=== PATIENT | female | born 1965 | race Caucasian/White ===

== ENCOUNTER 2017-08-03 08:10 | Emergency (ER) | payer OTHER, SELFPAY ==
[2017-08-03 08:29] VITALS: BP 127/65; PULSE 85; RESP 16; TEMP 36.9; O2SAT 97; BMI 28.2
--- NOTE | 2017-08-03 08:30 | ED.URI ---
HPI - URI/Sore Throat General Chief Complaint: Upper Respiratory Symptoms Stated Complaint: cough, fever Time Seen by Provider: 08/03/17 08:37 Source: patient and family Mode of arrival: ambulatory Limitations: no limitations History of Present Illness HPI Narrative: 51F no significant pmhx has cough, fever 3 days. Cough dry, fever controlled with tylenol. Subjective dyspnea associated. No chest pain, nausea or vomiting. PCP Dr. Umaña. Related Data Previous Rx's Medication Instructions Recorded azithromycin See Label Instructions .ROUTE 08/03/17 .COMPLEX #6 tab codeine-guaifenesin 7.5 ml PO Q4-6H PRN #473 ml 08/03/17 Allergies Allergy/AdvReac Type Severity Reaction Status Date / Time No Known Drug Allergies Allergy Verified 08/03/17 08:29 Review of Systems Review of Systems ROS: Constitutional - No fever, chills Eyes - No visual changes ENT - No hearing loss Cardiovascular - No chest pain, No edema, no palpitations Respiratory - dry cough, mild shortness of breath GI - No abdominal pain, No nausea, No vomiting - No dysuria, no hematuria MSK- No back pain Skin - No rash Neuro - No weakness, no change in level of consciousness Endocrine - No polyuria Hematologic/lymphatic - No easy bruising, no petechiae PFSH Social History Smoking Status: Never smoker Exam Narrative Exam Narrative: Exam: Constitutional - mildy ill appearing, well nourished, NAD EYES - PERRL, EOMI ENT - Moist oral mucosa, Bilateral normal TMs Cardiovasuclar - Normal rate, rhythm, no murmurs, gallops, rubs Respiratory - Lungs CTA bilaterally, no increased respiratory effort, no accessory muscle use, dry cough GI - Soft, non tender, non distended, no rebound MSK - No deformity, No CVA tenderness, No peripheral edema Skin - No rash, no petechiae Neuro - A&Ox3, moves all extremities. No focal deficits Initial Vital Signs Initial Vital Signs: Vital Signs Temperature 98.5 F 08/03/17 08:29 Pulse Rate 85 08/03/17 08:29 Respiratory Rate 16 08/03/17 08:29 Blood Pressure 127/65 H 08/03/17 08:29 Pulse Oximetry 97 08/03/17 08:29 Course Orders Ordered: ED Orders 08/03/17 08:31 XR chest 2V Stat 08/03/17 09:22 Complete Blood Count AUTO DIFF Stat Comprehensive Metabolic Panel Stat Discontinued Medications Guaifenesin/Codeine Phosphate (Guaifenesin/Codeine Liquid) 10 ml PO NOW ONE Stop: 08/03/17 09:53 Last Admin: 08/03/17 10:04 Dose: 10 ml Azithromycin 500 mg/ Dextrose 250 mls @ 250 mls/hr IV NOW ONE Stop: 08/03/17 09:33 Last Admin: 08/03/17 09:47 Dose: 250 mls/hr Vital Signs - 8 hr 08/03/17 08:29 Temperature 98.5 F Pulse Rate 85 Respiratory Rate 16 Blood Pressure 127/65 H Pulse Oximetry 97 MDM - URI/Sore Throat Lab Data Result diagrams: 08/03/17 09:22 08/03/17 09:22 Lab Results 08/03/17 08/03/17 Range/Units 09:22 09:22 WBC 8.1 (4.5-11.0) X10^3/uL RBC 3.66 L (4.0-5.2) X10^6/uL Hgb 11.4 L (12.0-16.0) g/dL Hct 33.0 L (36-46) % MCV 90.0 (80-100) fL MCH 31.2 (26-34) PG MCHC 34.7 (30-36) % RDW 12.9 (11.6-14.8) % Plt Count 266 (150-400) X10^3/uL Neut % (Auto) 73.6 (50-75) % Lymph % (Auto) 13.1 L (25-40) % [place] % (Auto) 11.1 (3-14) % Eos % (Auto) 1.7 L (2-4) % Baso % (Auto) 0.5 (0-2) % Neut # (Auto) 6000 H (1604-4889) /uL Sodium 139 (137-145) mmol/L Potassium 3.7 (3.4-5.1) mmol/L Chloride 101.0 (98-107) mmol/L Carbon Dioxide 25.0 (22-32) mmol/L BUN 5.0 L (7-17) mg/dL Creatinine 0.60 (0.52-1.04) mg/dL Estimated GFR > 60.0 (>60) mL/min BUN/Creatinine Ratio 8.3 (6-22) Glucose 105 H (70-100) mg/dL Calcium 8.7 (8.4-10.2) mg/dL Total Bilirubin 0.5 (0.2-1.3) mg/dL AST 60 H (14-36) IU/L ALT 74 H (9-52) IU/L Alkaline Phosphatase 137 H (38-126) U/L Total Protein 7.4 (6.3-8.2) g/dL Albumin 4.0 (3.5-5.0) g/dL Globulin 3.4 (1.7-4.1) g/dL Albumin/Globulin Ratio 1.2 (1.0-2.8) Imaging Data Chest x-ray: Radiologist's impression: Patient: Mackenzie Gr [facility]#: [id number] : 1965Acct:[id number] Age/Sex: 51 / FDate of Service: 08/03/17 Loc: ED Accession Number: [id number] Procedure: XR chest 2V Ordering Provider: Beatrice Mitchell M.D. PROCEDURE: XR CHEST 2V INDICATIONS: cough TECHNIQUE: 2 views of the chest were acquired. COMPARISON: Outside Facility, RG, XR CXR 1V, 09/14/2015, 15:45. FINDINGS: Surgical changes and devices: None. Lungs and pleura: No pleural effusions or pneumothorax. There are increased patchy left perihilar opacities. Mediastinum: Mediastinal contours are normal. Heart size is normal. Bones and chest wall: No suspicious bony abnormalities. Soft tissues appear unremarkable. IMPRESSION: 1. Patchy left perihilar opacities suggestive of pneumonia given clinical history. Dictated by: Ab Up M.D. on 08/03/2017 at 9:09 Approved by: Ab Up M.D. on 08/03/2017 at 9:09 [facility] Narrative Medical decision making narrative: Otherwise healthy female with perihilar pneumonia. Spo2 WNL on room air, no respiratory distress. Treat with azithromycin as outpatient. Discharge Plan Departure Patient Disposition: Home, Self-Care Clinical Impression: Pneumonia, Bronchitis Instructions: Pneumonia-Adult Activity Restrictions/Additional Instructions: Maintain adequate hydration. Please follow up with your primary care provider. Take antibiotics as prescribed. Prescriptions: New azithromycin 250 mg tablet See Label Instructions .ROUTE .COMPLEX Qty: 6 RF: 0 codeine-guaifenesin 7.5-225 mg/5 mL liquid 7.5 ml PO Q4-6H PRN (Reason: cough) Qty: 473 RF: 0
[2017-08-03 09:30] LABS: Add Manual Diff / Slide Review NO; Basophils Percent Auto 0.5 % (0-2); Eosinophils Percent Auto 1.7 % (2-4); Hemoglobin 11.4 g/dL (12.0-16.0); Lymphocytes Percent Auto 13.1 % (25-40); Mean Corpuscular HGB Conc 34.7 % (30-36); Mean Corpuscular Hemoglobin 31.2 PG (26-34); Monocytes Percent Auto 11.1 % (3-14); Neutrophils Absolute Auto 6000 /uL (3000-5900); Neutrophils Percent Auto 73.6 % (50-75); Platelet Count 266 X10^3/uL (150-400); Red Blood Cell Count 3.66 X10^6/uL (4.0-5.2); Red Cell Distribution Width 12.9 % (11.6-14.8); White Blood Cell Count 8.1 X10^3/uL (4.5-11.0)
--- NOTE | 2017-08-03 09:32 | ED_ITS ---
HPI - URI/Sore Throat General Chief Complaint: Upper Respiratory Symptoms Stated Complaint: cough, fever Time Seen by Provider: 08/03/17 08:37 Source: patient and family Mode of arrival: ambulatory Limitations: no limitations History of Present Illness HPI Narrative: 51F no significant pmhx has cough, fever 3 days. Cough dry, fever controlled with tylenol. Subjective dyspnea associated. No chest pain, nausea or vomiting. PCP Dr. Umaña. Related Data Previous Rx's Medication Instructions Recorded azithromycin See Label Instructions .ROUTE 08/03/17 .COMPLEX #6 tab codeine-guaifenesin 7.5 ml PO Q4-6H PRN #473 ml 08/03/17 Allergies Allergy/AdvReac Type Severity Reaction Status Date / Time No Known Drug Allergies Allergy Verified 08/03/17 08:29 Review of Systems Review of Systems ROS: Constitutional - No fever, chills Eyes - No visual changes ENT - No hearing loss Cardiovascular - No chest pain, No edema, no palpitations Respiratory - dry cough, mild shortness of breath GI - No abdominal pain, No nausea, No vomiting - No dysuria, no hematuria MSK- No back pain Skin - No rash Neuro - No weakness, no change in level of consciousness Endocrine - No polyuria Hematologic/lymphatic - No easy bruising, no petechiae PFSH Social History Smoking Status: Never smoker Exam Narrative Exam Narrative: Exam: Constitutional - mildy ill appearing, well nourished, NAD EYES - PERRL, EOMI ENT - Moist oral mucosa, Bilateral normal TMs Cardiovasuclar - Normal rate, rhythm, no murmurs, gallops, rubs Respiratory - Lungs CTA bilaterally, no increased respiratory effort, no accessory muscle use, dry cough GI - Soft, non tender, non distended, no rebound MSK - No deformity, No CVA tenderness, No peripheral edema Skin - No rash, no petechiae Neuro - A&Ox3, moves all extremities. No focal deficits Initial Vital Signs Initial Vital Signs: Vital Signs Temperature 98.5 F 08/03/17 08:29 Pulse Rate 85 08/03/17 08:29 Respiratory Rate 16 08/03/17 08:29 Blood Pressure 127/65 H 08/03/17 08:29 Pulse Oximetry 97 08/03/17 08:29 Course Orders Ordered: ED Orders 08/03/17 08:31 XR chest 2V Stat 08/03/17 09:22 Complete Blood Count AUTO DIFF Stat Comprehensive Metabolic Panel Stat Discontinued Medications Guaifenesin/Codeine Phosphate (Guaifenesin/Codeine Liquid) 10 ml PO NOW ONE Stop: 08/03/17 09:53 Last Admin: 08/03/17 10:04 Dose: 10 ml Azithromycin 500 mg/ Dextrose 250 mls @ 250 mls/hr IV NOW ONE Stop: 08/03/17 09:33 Last Admin: 08/03/17 09:47 Dose: 250 mls/hr Vital Signs - 8 hr 08/03/17 08:29 Temperature 98.5 F Pulse Rate 85 Respiratory Rate 16 Blood Pressure 127/65 H Pulse Oximetry 97 MDM - URI/Sore Throat Lab Data Result diagrams: 08/03/17 09:22 08/03/17 09:22 Lab Results 08/03/17 08/03/17 Range/Units 09:22 09:22 WBC 8.1 (4.5-11.0) X10^3/uL RBC 3.66 L (4.0-5.2) X10^6/uL Hgb 11.4 L (12.0-16.0) g/dL Hct 33.0 L (36-46) % MCV 90.0 (80-100) fL MCH 31.2 (26-34) PG MCHC 34.7 (30-36) % RDW 12.9 (11.6-14.8) % Plt Count 266 (150-400) X10^3/uL Neut % (Auto) 73.6 (50-75) % Lymph % (Auto) 13.1 L (25-40) % [place] % (Auto) 11.1 (3-14) % Eos % (Auto) 1.7 L (2-4) % Baso % (Auto) 0.5 (0-2) % Neut # (Auto) 6000 H (3948-7486) /uL Sodium 139 (137-145) mmol/L Potassium 3.7 (3.4-5.1) mmol/L Chloride 101.0 (98-107) mmol/L Carbon Dioxide 25.0 (22-32) mmol/L BUN 5.0 L (7-17) mg/dL Creatinine 0.60 (0.52-1.04) mg/dL Estimated GFR > 60.0 (>60) mL/min BUN/Creatinine Ratio 8.3 (6-22) Glucose 105 H (70-100) mg/dL Calcium 8.7 (8.4-10.2) mg/dL Total Bilirubin 0.5 (0.2-1.3) mg/dL AST 60 H (14-36) IU/L ALT 74 H (9-52) IU/L Alkaline Phosphatase 137 H (38-126) U/L Total Protein 7.4 (6.3-8.2) g/dL Albumin 4.0 (3.5-5.0) g/dL Globulin 3.4 (1.7-4.1) g/dL Albumin/Globulin Ratio 1.2 (1.0-2.8) Imaging Data Chest x-ray: Radiologist's impression: Patient: Mackenzie Gr [facility]#: [id number] : 1965Acct:[id number] Age/Sex: 51 / FDate of Service: 08/03/17 Loc: ED Accession Number: [id number] Procedure: XR chest 2V Ordering Provider: Beatrice Mitchell M.D. PROCEDURE: XR CHEST 2V INDICATIONS: cough TECHNIQUE: 2 views of the chest were acquired. COMPARISON: Outside Facility, RG, XR CXR 1V, 09/14/2015, 15:45. FINDINGS: Surgical changes and devices: None. Lungs and pleura: No pleural effusions or pneumothorax. There are increased patchy left perihilar opacities. Mediastinum: Mediastinal contours are normal. Heart size is normal. Bones and chest wall: No suspicious bony abnormalities. Soft tissues appear unremarkable. IMPRESSION: 1. Patchy left perihilar opacities suggestive of pneumonia given clinical history. Dictated by: Ab Up M.D. on 08/03/2017 at 9:09 Approved by: Ab Up M.D. on 08/03/2017 at 9:09 [facility] Narrative Medical decision making narrative: Otherwise healthy female with perihilar pneumonia. Spo2 WNL on room air, no respiratory distress. Treat with azithromycin as outpatient. Discharge Plan Departure Patient Disposition: Home, Self-Care Clinical Impression: Pneumonia, Bronchitis Instructions: Pneumonia-Adult Activity Restrictions/Additional Instructions: Maintain adequate hydration. Please follow up with your primary care provider. Take antibiotics as prescribed. Prescriptions: New azithromycin 250 mg tablet See Label Instructions .ROUTE .COMPLEX Qty: 6 RF: 0 codeine-guaifenesin 7.5-225 mg/5 mL liquid 7.5 ml PO Q4-6H PRN (Reason: cough) Qty: 473 RF: 0
[2017-08-03 09:42] LABS: Alanine Aminotransferase 74 IU/L (9-52); Albumin Globulin Ratio 1.2 (1.0-2.8); Alkaline Phosphatase 137 U/L (38-126); Aspartate Aminotransferase 60 IU/L (14-36); BUN Creatinine Ratio 8.3 (6-22); Bilirubin Total 0.5 mg/dL (0.2-1.3); Calcium 8.7 mg/dL (8.4-10.2); Estimated Glomerular Filt Rate > 60.0 mL/min (>60); Globulin 3.4 g/dL (1.7-4.1); Glucose 105 mg/dL (70-100); HEMOLYSIS < 15 (0-50); Potassium 3.7 mmol/L (3.4-5.1); Sodium 139 mmol/L (137-145); Total Protein 7.4 g/dL (6.3-8.2)
[2017-08-03] MEDS: AZITHROMYCIN 500 MG in DEXTROSE 5% IN WATER 250 ML IV (09:47)
[2017-08-03] MEDS: CODEINE/GUAIFENESIN LIQUID 10 ML PO (10:04)
[2017-08-03 10:20] VITALS: BP 112/65; PULSE 90; RESP 12; O2SAT 97
[2017-08-03 10:55] VITALS: BP 103/67; PULSE 79; RESP 12; O2SAT 96
== END 2017-08-03 10:59 | disposition home or self-care (01) ==
PROVIDERS: Emergency Provider Student in an Organized Health Care Education/Training Program; Family Provider Family Medicine; PCP Family Medicine
DX: J18.9 Pneumonia, unspecified organism (principal); J40 Bronchitis, not specified as acute or chronic
CPT/HCPCS: 36415; 71046; 80053; 85025; 99283; 99284

== ENCOUNTER → 2017-11-12 09:39 | Outpatient (CLI) | payer OTHER, SELFPAY ==
--- NOTE | 2017-11-12 | DI.MG.S_ITS ---
BILATERAL DIGITAL SCREENING MAMMOGRAM 3D/2D WITH CAD: 11/12/2017 CLINICAL: Routine screening. Family history of breast cancer. Comparison is made to exams dated: 11/08/2016 mammogram - [facility], 09/14/2015 mammogram, and 09/04/2013 mammogram - [facility]. There are scattered fibroglandular elements in both breasts. Current study was also evaluated with a Computer Aided Detection (CAD) system. No significant masses, calcifications, or other findings are seen in either breast. There has been no significant interval change. IMPRESSION: NEGATIVE There is no mammographic evidence of malignancy. A 1 year screening mammogram is recommended. This exam was interpreted at Station ID: [id number]. NOTE: For mammograms, a report in lay terms will be sent to the patient. Approximately 15% of breast malignancies will not be visualized mammographically. In the management of a palpable breast mass, a negative mammogram must not discourage biopsy of a clinically suspicious lesion. Electronically Signed By: Falguni ellis/hilda:11/12/2017 11:09:29 copy to: Neha Fernandez copy to: Kristin Grier M.D., [employer], ph: [phone], fax: [phone] letter sent: Normal Exam ACR BI-RADS Category 1: Negative [id number]
== END ==
PROVIDERS: PCP Family Medicine; Visit Provider Nurse Practitioner Family
DX: Z12.31 Encounter for screening mammogram for malignant neoplasm of breast (principal); Z80.3 Family history of malignant neoplasm of breast
CPT/HCPCS: 77063; 77067

== ENCOUNTER → 2017-12-03 14:33 | Outpatient (CLI) | payer OTHER, SELFPAY | DX: Z23 Encounter for immunization (principal) | CPT/HCPCS: 90471; 90686 ==

== ENCOUNTER → 2018-01-22 10:45 | Outpatient (CLI) | payer OTHER, SELFPAY ==
[2018-01-22 13:59] LABS: Thyroid Stimulating Hormone 3.51 uIU/mL (0.47-4.68)
[2018-01-22 16:22] LABS: Cholesterol 198 mg/dL (140-199); Glucose 81 mg/dL (70-100); HDL Cholesterol 57 mg/dL (40-60); LDL Cholesterol Calculated 122 mg/dL (<100); Triglycerides 96 mg/dL (35-150)
== END ==
PROVIDERS: PCP Family Medicine; Visit Provider Family Medicine
DX: Z13.1 Encounter for screening for diabetes mellitus (principal); Z13.220 Encounter for screening for lipoid disorders; E03.9 Hypothyroidism, unspecified
CPT/HCPCS: 36415; 80061; 82947; 84443

== ENCOUNTER 2018-03-05 19:09 | Emergency (ER) | payer OTHER, SELFPAY ==
[2018-03-05 19:35] VITALS: BP 146/79; PULSE 68; PULSE 72; RESP 16; RESP 20; TEMP 36.2; O2SAT 98; BMI 25.4
--- NOTE | 2018-03-05 19:57 | DI.CT.S_ITS ---
PROCEDURE: CT ABDOMEN PELVIS W CON INDICATIONS: abdomen pain TECHNIQUE: After the administration of intravenous contrast, 5 mm thick sections acquired from the diaphragm to the symphysis. 5 mm coronal and sagittal reformats were acquired. For radiation dose reduction, the following was used: automated exposure control, adjustment of mA and/or kV according to patient size. COMPARISON: [employer] [facility], US, US PELVIC COMPLETE, 10/04/2017, 17:05. FINDINGS: Image quality: Excellent. ABDOMEN: Lung bases: Lung bases are clear. Heart size is normal. Solid organs: Liver is mildly enlarged with steatosis. Gallbladder is unremarkable. Biliary system is non dilated. Pancreas enhances normally. Spleen is normal in size and enhancement. No adrenal nodules. Kidneys demonstrate normal size and enhancement, without hydronephrosis. Peritoneum and bowel: Mild scattered appearance of fluid filled small bowel loops. No free fluid or air. Mild scattered diverticula are noted without inflammatory change. Moderate stool is present. Appendix is unremarkable. Nodes and vessels: No retroperitoneal or mesenteric adenopathy by size criteria. Aorta and inferior vena cava are normal in size. Miscellaneous: No ventral hernias. PELVIS: Genitourinary: Bladder wall thickness is normal. Miscellaneous: No inguinal hernias or adenopathy. Bones: No suspicious bony lesions. No vertebral body compression fractures. IMPRESSION: 1. Prominent colonic stool consistent with constipation. 2. Mild appearance of scattered fluid filled small bowel loops, overall non-specific. This could be related to ileus, enteritis or less likely developing partial small bowel obstruction. Dictated by: Raquel Jacob M.D. on 03/05/2018 at 20:47 Approved by: Raquel Jacob M.D. on 03/05/2018 at 20:51
[2018-03-05 20:45] LABS: Add Manual Diff / Slide Review NO; Basophils Percent Auto 0.8 % (0-2); Eosinophils Percent Auto 1.8 % (2-4); Hematocrit 39.3 % (36-46); Hemoglobin 13.6 g/dL (12.0-16.0); Lymphocytes Percent Auto 33.8 % (25-40); Mean Corpuscular HGB Conc 34.5 % (30-36); Mean Corpuscular Hemoglobin 31.4 PG (26-34); Mean Corpuscular Volume 90.9 fL (80-100); Monocytes Percent Auto 7.5 % (3-14); Neutrophils Absolute Auto 3900 /uL (1500-7000); Neutrophils Percent Auto 56.1 % (50-75); Platelet Count 344 X10^3/uL (150-400); Red Blood Cell Count 4.32 X10^6/uL (4.0-5.2); Red Cell Distribution Width 13.7 % (11.6-14.8)
[2018-03-05 20:55] LABS: Alanine Aminotransferase 25 IU/L (9-52); Albumin 4.6 g/dL (3.5-5.0); Albumin Globulin Ratio 1.4 (1.0-2.8); Alkaline Phosphatase 79 U/L (38-126); Aspartate Aminotransferase 35 IU/L (14-36); BUN Creatinine Ratio 12.2 (6-22); Bilirubin Total 0.3 mg/dL (0.2-1.3); Blood Urea Nitrogen 11 mg/dL (7-17); Calcium 10.1 mg/dL (8.4-10.2); Carbon Dioxide 30 mmol/L (22-32); Chloride 104 mmol/L (98-107); Estimated Glomerular Filt Rate > 60.0 mL/min (>60); Globulin 3.4 g/dL (1.7-4.1); Glucose 109 mg/dL (70-100); HEMOLYSIS < 15 (0-50); Potassium 3.8 mmol/L (3.4-5.1); Sodium 146 mmol/L (137-145)
[2018-03-05 20:56] LABS: Lipase 155 U/L (23-300)
[2018-03-05 20:59] VITALS: BP 113/67; PULSE 56; RESP 16; O2SAT 98
[2018-03-05] MEDS: ONDANSETRON 4 MG/2 ML INJ IV (20:59)
[2018-03-05] MEDS: HYDROMORPHONE 1 MG INJ 0.5 MG IV (20:59)
[2018-03-05] MEDS: SODIUM CHLORIDE 0.9% 1,000 ML 1000 ML IV (20:59)
[2018-03-05] MEDS: PANTOPRAZOLE 40 MG VIAL IV (21:04)
--- NOTE | 2018-03-05 21:10 | ED_ITS ---
HPI - Abdominal Pain General Chief Complaint: Abdominal Pain Stated Complaint: CHEST PAIN AND BACK PAIN Time Seen by Provider: 03/05/18 19:40 Source: patient Mode of arrival: ambulatory Limitations: no limitations History of Present Illness HPI narrative: 52-year-old nonsmoker, otherwise healthy female presents with chief complaint of gradually worsening generalized abdominal, particularly in right upper and left upper abdomen with radiation to the back. She vomited once. She denies provocation or palliation of her symptoms nor any history of the same. She denies any significant alcohol history. She denies significant use of NSAIDs. She is routinely quite healthy and visibly concerned about this discomfort she is having. Related Data Home Medications Medication Instructions Recorded Confirmed thyroid 60 mg tablet mg PO tab 10/04/17 01/22/18 Previous Rx's Medication Instructions Recorded CMP Testosterone See Label Instructions .ROUTE 11/05/17 .COMPLEX #30 gram alprazolam 0.25 mg tablet 0.25 mg PO TID PRN #10 tab 01/22/18 thyroid (pork) 65 mg tablet 65 mg PO DAILY #90 tab 01/22/18 thyroid (pork) 60 mg tablet 60 mg PO DAILY #90 tab 01/24/18 metoclopramide HCl [Reglan] 10 mg PO Q6H PRN #14 tab 03/05/18 ondansetron 4 mg PO TID-QID PRN #10 tab 03/05/18 Allergies Allergy/AdvReac Type Severity Reaction Status Date / Time No Known Drug Allergies Allergy Verified 03/05/18 19:35 Review of Systems Review of Systems All systems reviewed & are unremarkable except as noted in HPI and below Constitutional Denies chills, Denies fever(s), Denies lethargy and Denies weakness Eyes Denies change in vision, Denies eye discharge, Denies irritation and Denies loss of vision ENT Ears, Nose, Mouth, and Throat: Denies change in voice, Denies neck pain and Denies sore throat Cardiovascular Denies chest pain, Denies irregular heart rhythm, Denies lightheadedness, Denies palpitations, Denies dyspnea, Denies dyspnea on exertion and Denies orthopnea Respiratory Denies cough, Denies dyspnea, Denies dyspnea on exertion and Denies wheezing Gastrointestinal Gastrointestinal: Reports abdominal pain, Denies change in bowel habits, Denies diarrhea, Reports nausea and Reports vomiting Genitourinary Denies hematuria, Denies flank pain, Denies urinary incontinence and Denies urinary urgency Musculoskeletal Denies neck pain Integumentary/Breasts Denies pruritus, Denies erythema, Denies rash and Denies wounds Neurologic Denies confusion, Denies loss of vision and Denies weakness Psychiatric Denies anxiety, Denies confusion, Denies depression, Denies homicidal ideation and Denies suicidal ideation Endocrine Denies palpitations Hematologic/Lymphatic Denies easy bruising Allergic/Immunologic Denies wheezing [facility] Medical History Family hx of colon cancer (Chronic) Hypothyroidism (Chronic ~1993) Painful menstrual periods (Chronic ~1979) Restless leg syndrome (Chronic ~1989) Shoulder pain (Chronic ~2017) Skin cancer (Chronic ~2001) Abnormal Pap smear of cervix (Resolved ~2003) Abnormal chest xray (Resolved ~2017) Chicken pox (Resolved ~1968) Surgical History Anesthesia (Resolved) Branchial cleft cyst (Resolved ~1975) History of section (Resolved ~2000) History of section (Resolved ~2001) Throat papilloma (Resolved ~2004) [place] teeth removed (Resolved ~1982) Family History Father Alcoholism Smoker Mother Hyperlipidemia Hypertension Sister Rectal cancer Grandfather Hyperlipidemia Hypertension Heart disease Grandmother Diabetes mellitus Hypertension Stroke Grandfather Hyperlipidemia Hypertension Grandmother Hypertension Diabetes mellitus Social History Smoking Status: Never smoker Exam Narrative Exam Narrative: GENERAL: This is a well-nourished, well-developed patient, in mild distress. Slightly anxious HEAD: Atraumatic. Normocephalic. No temporal or scalp tenderness. EYES: Pupils equal round and reactive. Extraocular motions intact. No scleral icterus. No injection or drainage. ENT: Nose without bleeding, purulent drainage or septal hematoma. Throat without erythema, tonsillar hypertrophy or exudate. Uvula midline. Airway patent. NECK: Trachea midline. No JVD or lymphadenopathy. Supple, nontender, no meningeal signs. CARDIOVASCULAR: Regular rate and rhythm without murmurs, gallops, or rubs. RESPIRATORY: Clear to auscultation. Breath sounds equal bilaterally. No wheezes , rales, or rhonchi. GASTROINTESTINAL: Abdomen soft, tender across the epigastrium, right upper quadrant worse than left upper quadrant, nondistended. No hepato-splenomegaly, or palpable masses. No guarding. EXTREMITIES: No clubbing, cyanosis, or edema. No joint tenderness, effusion, or edema noted. BACK: Nontender without deformity or crepitance. No flank tenderness. NEURO: AOx3. SKIN: No rash or erythema. Initial Vital Signs Initial Vital Signs: Vital Signs Temperature 97.1 F L 03/05/18 19:35 Pulse Rate 72 03/05/18 19:35 Respiratory Rate 20 03/05/18 19:35 Blood Pressure 146/79 H 03/05/18 19:35 Pulse Oximetry 98 03/05/18 19:35 Course Orders Ordered: ED Orders 03/05/18 19:57 CT abdomen pelvis w con Stat 03/05/18 20:30 Complete Blood Count AUTO DIFF Stat Comprehensive Metabolic Panel Stat Free T4 Free Thyroxine Stat Lipase Stat Thyroid Stimulating Hormone Stat Discontinued Medications Hydromorphone HCl (Dilaudid) 0.5 mg IV NOW ONE Stop: 03/05/18 20:41 Last Admin: 03/05/18 20:59 Dose: 0.5 mg Sodium Chloride (Normal Saline 0.9%) 1,000 mls @ 1,000 mls/hr IV BOLUS ONE Stop: 03/05/18 21:32 Last Admin: 03/05/18 20:59 Dose: 1,000 mls/hr Metoclopramide HCl (Reglan) 10 mg IV NOW ONE Stop: 03/05/18 21:40 Last Admin: 03/05/18 21:46 Dose: 10 mg Ondansetron HCl (Zofran) 4 mg IV NOW ONE Stop: 03/05/18 20:41 Last Admin: 03/05/18 20:59 Dose: 4 mg Ondansetron HCl (Zofran Odt Prepack) 1 bottle MISC SEEINSTR ONE Stop: 03/05/18 21:53 Pantoprazole Sodium (Protonix) 40 mg IV NOW ONE Stop: 03/05/18 20:34 Last Admin: 03/05/18 21:04 Dose: 40 mg Reevaluation(s) Reevaluation #1: Patient states that her left upper quadrant pain essentially went away after administration of 1st round of medications. She was seen and evaluated by General surgery very early on in the visit and request CT Consultations Consultation #1: Dr. Vital consulted early and again after CT. She recommends symptomatic treatment and DC but is happy to admit for symptom control if patient needs it. Vital Signs - 8 hr 03/05/18 20:59 03/05/18 22:35 Pulse Rate 56 L 70 Respiratory Rate 16 14 Blood Pressure 115/65 Blood Pressure [Left Arm] 113/67 Pulse Oximetry 98 100 MDM - Abdominal Pain Lab Data Result diagrams: 03/05/18 20:30 03/05/18 20:30 Lab Results 03/05/18 03/05/18 03/05/18 Range/Units 20:30 20:30 20:30 WBC 7.0 (4.5-11.0) X10^3/uL RBC 4.32 (4.0-5.2) X10^6/uL Hgb 13.6 (12.0-16.0) g/dL Hct 39.3 (36-46) % MCV 90.9 (80-100) fL MCH 31.4 (26-34) PG MCHC 34.5 (30-36) % RDW 13.7 (11.6-14.8) % Plt Count 344 (150-400) X10^3/uL Neut % (Auto) 56.1 (50-75) % Lymph % (Auto) 33.8 (25-40) % [place] % (Auto) 7.5 (3-14) % Eos % (Auto) 1.8 L (2-4) % Baso % (Auto) 0.8 (0-2) % Neut # (Auto) 3900 (8684-2585) /uL Sodium (137-145) mmol/L Potassium (3.4-5.1) mmol/L Chloride (98-107) mmol/L Carbon Dioxide (22-32) mmol/L BUN (7-17) mg/dL Creatinine (0.52-1.04) mg/dL Estimated GFR (>60) mL/min BUN/Creatinine Ratio (6-22) Glucose (70-100) mg/dL Calcium (8.4-10.2) mg/dL Total Bilirubin (0.2-1.3) mg/dL AST (14-36) IU/L ALT (9-52) IU/L Alkaline Phosphatase (38-126) U/L Total Protein (6.3-8.2) g/dL Albumin (3.5-5.0) g/dL Globulin (1.7-4.1) g/dL Albumin/Globulin Ratio (1.0-2.8) Lipase 155 (23-300) U/L TSH 6.53 H (0.47-4.68) uIU/mL Free T4 0.82 (0.78-2.19) ng/dL // Range/Units 20:30 WBC (4.5-11.0) X10^3/uL RBC (4.0-5.2) X10^6/uL Hgb (12.0-16.0) g/dL Hct (36-46) % MCV (80-100) fL MCH (26-34) PG MCHC (30-36) % RDW (11.6-14.8) % Plt Count (150-400) X10^3/uL Neut % (Auto) (50-75) % Lymph % (Auto) (25-40) % [place] % (Auto) (3-14) % Eos % (Auto) (2-4) % Baso % (Auto) (0-2) % Neut # (Auto) (7527-9860) /uL Sodium 146 H (137-145) mmol/L Potassium 3.8 (3.4-5.1) mmol/L Chloride 104 (98-107) mmol/L Carbon Dioxide 30 (22-32) mmol/L BUN 11 (7-17) mg/dL Creatinine 0.90 (0.52-1.04) mg/dL Estimated GFR > 60.0 (>60) mL/min BUN/Creatinine Ratio 12.2 (6-22) Glucose 109 H (70-100) mg/dL Calcium 10.1 (8.4-10.2) mg/dL Total Bilirubin 0.3 (0.2-1.3) mg/dL AST 35 (14-36) IU/L ALT 25 (9-52) IU/L Alkaline Phosphatase 79 (38-126) U/L Total Protein 8.0 (6.3-8.2) g/dL Albumin 4.6 (3.5-5.0) g/dL Globulin 3.4 (1.7-4.1) g/dL Albumin/Globulin Ratio 1.4 (1.0-2.8) Lipase (23-300) U/L TSH (0.47-4.68) uIU/mL Free T4 (0.78-2.19) ng/dL Discharge Plan Departure Patient Disposition: Home Clinical Impression: Abdominal pain, Vomiting Discharge Date/Time: 03/05/18 22:34 Interventions: ED Discharge Assessment Last Done: 03/05/18 22:35 Instructions: DI for Abdominal Pain-Adult Activity Restrictions/Additional Instructions: 1. Drink plenty of fluids with frequent small sips. 2. For the next 24 hours a clear liquid diet is advised. After that please employ a brat diet which would include bananas, rice, apples, toast. 3. Please take medications as directed. Prescriptions were sent to [facility] based on your listed preference 4. Please follow-up with your doctor in the next 1-2 days. Call the office for an appointment. 5. Please return to the emergency Department for any worsening or persistent symptoms, such as increasing pain or fever. Prescriptions: New ondansetron 4 mg tablet,disintegrating 4 mg PO TID-QID PRN (Reason: nausea and vomiting) Qty: 10 RF: 0 metoclopramide HCl [Reglan] 10 mg tablet 10 mg PO Q6H PRN (Reason: nausea and vomiting) Qty: 14 RF: 0 No Action CMP Testosterone See Label Instructions .ROUTE .COMPLEX Qty: 30 RF: 3 thyroid (pork) [Nature-Throid] 65 mg tablet 65 mg PO DAILY Qty: 90 RF: 3 thyroid (pork) [[place] Thyroid] 60 mg tablet 60 mg PO DAILY Qty: 90 RF: 3 alprazolam 0.25 mg tablet 0.25 mg PO TID PRN (Reason: anxiety) Qty: 10 RF: 0 thyroid 60 mg tablet PO RF: 0 Referrals: Kristin Grier MD [Primary Care Provider] -
[2018-03-05 21:45] LABS: Thyroid Stimulating Hormone 6.53 uIU/mL (0.47-4.68)
[2018-03-05] MEDS: METOCLOPRAMIDE 10 MG/2 ML INJ IV (21:46)
[2018-03-05 22:35] VITALS: BP 115/65; PULSE 70; RESP 14; O2SAT 100
[2018-03-05 23:38] LABS: Free T4, Direct Thyroxine 0.82 ng/dL (0.78-2.19)
--- NOTE | 2018-04-20 15:51 | PC.NURSE ---
2230 NS Bolus 1000ml infused complete
== END 2018-03-05 22:34 | disposition home or self-care (01) ==
PROVIDERS: Emergency Provider Emergency Medicine; PCP Family Medicine
DX: R10.9 Unspecified abdominal pain (principal); R11.10 Vomiting, unspecified
CPT/HCPCS: 36591; 74177; 80053; 83690; 84439; 84443; 85025; 93005; 96361; 96374; 96375; 99282; 99285; C9113; J1170; J2405; J2765; Q9967

== ENCOUNTER → 2018-05-07 12:24 | Outpatient (CLI) | payer OTHER, SELFPAY ==
[2018-05-07 14:23] LABS: Thyroid Stimulating Hormone 0.02 uIU/mL (0.47-4.68)
== END ==
PROVIDERS: PCP Family Medicine; Visit Provider Family Medicine
DX: E03.9 Hypothyroidism, unspecified (principal)
CPT/HCPCS: 36415; 84443

== ENCOUNTER → 2018-08-07 13:57 | Outpatient (CLI) | payer OTHER, SELFPAY ==
[2018-08-07 15:57] LABS: Thyroid Stimulating Hormone 1.77 uIU/mL (0.47-4.68)
== END ==
PROVIDERS: PCP Family Medicine; Visit Provider Family Medicine
DX: E03.9 Hypothyroidism, unspecified (principal)
CPT/HCPCS: 36415; 84443

== ENCOUNTER → 2018-10-10 11:59 | Outpatient (CLI) | payer OTHER, SELFPAY ==
--- NOTE | 2018-10-10 12:09 | DI.US.S_ITS ---
PROCEDURE: US PELVIC COMPLETE INDICATIONS: RIGHT PELVIC PAIN TECHNIQUE: Real-time scanning was performed of the pelvic organs, with image documentation. Additional endovaginal scanning was necessary due to incomplete visualization of the adnexal and endometrial structures by transabdominal scanning. COMPARISON: [facility], US, US PELVIC COMPLETE, 10/04/2017, 17:05. FINDINGS: Transabdominal scanning: Limited scanning through the kidneys shows no hydronephrosis. No pathologic free abdominal or pelvic fluid. Endovaginal scanning: Uterus: Uterus is normal in size at 6.2 x 3.8 x 3.4 cm. The endometrium measures 5-6 mm in combined thickness. Ovaries: Right ovary measures 2.0 x 1.5 x 0.7 cm. Left ovary measures 1.9 x 1.8 x 1.1 cm. Ovaries are unremarkable bilaterally IMPRESSION: Unremarkable examination as above. Dictated by: Carlos Alberto Almazan M.D. on 10/10/2018 at 15:06 Approved by: Carlos Alberto Almazan M.D. on 10/10/2018 at 15:08
--- NOTE | 2018-10-10 12:09 | DI.US.S_ITS ---
PROCEDURE: US ABDOMEN COMPLETE INDICATIONS: EPIGASTRIC PAIN TECHNIQUE: Real-time scanning was performed of the abdominal and retroperitoneal organs, with image documentation. COMPARISON: None. FINDINGS: Liver: Liver measures 15.6 cm. There is diffuse slight increase in echogenicity. No focal hepatic lesion identified. Gallbladder: Gallstones are noted, with some oval appearance. No wall thickening, pericholecystic fluid or sonographic Jauregui sign. Biliary ducts: Intrahepatic bile ducts are non-dilated. Extrahepatic bile duct caliber measures 4 mm. Normal is 6-7 mm or less in diameter, or 10 mm or less post-cholecystectomy. Pancreas: Not well seen secondary to shadowing bowel gas Spleen: Spleen is normal in size and homogeneous in echotexture. Kidneys: Kidneys are normal in size and echotexture. Right kidney measures 10.7 cm long; left kidney measures 13.0 cm long. No hydronephrosis or nephrolithiasis. No solid masses. Aorta: Visualized aorta is normal in caliber at less than 3 cm. Iliacs: Proximal common iliac arteries are normal in caliber at less than 2.5 cm. IVC: Intrahepatic inferior vena cava is patent. Miscellaneous: No free abdominal fluid. IMPRESSION: Cholelithiasis, however no other sonographic criteria for acute cholecystitis. Please correlate clinically and with LFTs. Coarse echogenic liver suggesting diffuse hepatocellular disease/fatty infiltration. Dictated by: Carlos Alberto Almazan M.D. on 10/10/2018 at 13:53 Approved by: Carlos Alberto Almazan M.D. on 10/10/2018 at 13:55
== END ==
PROVIDERS: Family Provider Family Medicine; PCP Family Medicine; Visit Provider Nurse Practitioner
DX: R10.13 Epigastric pain (principal); R10.2 Pelvic and perineal pain; K80.20 Calculus of gallbladder without cholecystitis without obstruction
CPT/HCPCS: 76700; 76830; 76856

== ENCOUNTER → 2018-11-03 12:10 | Outpatient (CLI) | payer OTHER, SELFPAY ==
[2018-11-03 12:56] LABS: Alanine Aminotransferase 22 IU/L (9-52); Albumin 4.6 g/dL (3.5-5.0); Albumin Globulin Ratio 1.4 (1.0-2.8); Alkaline Phosphatase 83 U/L (38-126); Aspartate Aminotransferase 30 IU/L (14-36); Bilirubin Total 0.5 mg/dL (0.2-1.3); Bilirubin Unconjugated 0.3 mg/dL (0.0-1.1); Globulin 3.3 g/dL (1.7-4.1); HEMOLYSIS < 15 (0-50); Total Protein 7.9 g/dL (6.3-8.2)
[2018-11-03 13:45] LABS: Thyroid Stimulating Hormone 0.35 uIU/mL (0.47-4.68)
[2018-11-21 10:50] LABS: Hepatitis B Surface Antigen NONREACTIVE
[2018-11-21 10:51] LABS: Hepatitis A Antibody IgM NONREACTIVE; Hepatitis B Core Antibody IgM NONREACTIVE
[2018-11-21 10:52] LABS: Hepatitis C Antibody NONREACTIVE
== END ==
PROVIDERS: PCP Family Medicine; Visit Provider Nurse Practitioner
DX: K80.20 Calculus of gallbladder without cholecystitis without obstruction (principal); R10.13 Epigastric pain; R10.10 Upper abdominal pain, unspecified; R10.11 Right upper quadrant pain; E03.9 Hypothyroidism, unspecified
CPT/HCPCS: 36415; 80074; 80076; 84443

== ENCOUNTER → 2018-11-13 09:23 | Outpatient (CLI) | payer OTHER, SELFPAY ==
--- NOTE | 2018-11-13 | DI.MG.S_ITS ---
BILATERAL DIGITAL SCREENING MAMMOGRAM 3D/2D WITH CAD: 11/13/2018 CLINICAL: Routine screening. Family history of breast cancer. Comparison is made to exams dated: 11/12/2017 mammogram, 11/08/2016 mammogram - [facility], and 09/14/2015 mammogram - [facility]. There are scattered fibroglandular elements in both breasts. Current study was also evaluated with a Computer Aided Detection (CAD) system. No significant masses, calcifications, or other findings are seen in either breast. There has been no significant interval change. IMPRESSION: NEGATIVE There is no mammographic evidence of malignancy. A 1 year screening mammogram is recommended. This exam was interpreted at Station ID: [id number]. NOTE: For mammograms, a report in lay terms will be sent to the patient. Approximately 15% of breast malignancies will not be visualized mammographically. In the management of a palpable breast mass, a negative mammogram must not discourage biopsy of a clinically suspicious lesion. Electronically Signed By: Aly pearson/hilda:11/13/2018 10:10:15 letter sent: Normal Exam ACR BI-RADS Category 1: Negative 3341F
== END ==
PROVIDERS: PCP Family Medicine; Visit Provider Family Medicine
DX: Z12.31 Encounter for screening mammogram for malignant neoplasm of breast (principal); Z80.3 Family history of malignant neoplasm of breast
CPT/HCPCS: 77063; 77067

== ENCOUNTER → 2019-02-09 12:39 | Outpatient (CLI) | payer OTHER, SELFPAY ==
[2019-02-09 14:09] LABS: Thyroid Stimulating Hormone 1.38 uIU/mL (0.47-4.68)
== END ==
PROVIDERS: PCP Family Medicine; Visit Provider Nurse Practitioner
DX: E03.9 Hypothyroidism, unspecified (principal)
CPT/HCPCS: 36415; 84443

== ENCOUNTER → 2019-11-18 16:07 | Outpatient (CLI) | payer OTHER, SELFPAY ==
--- NOTE | 2019-11-18 16:33 | DI.MG.S_ITS ---
Patient Name: BARBARA ARZATE date: 1965 Sex: F Attending Physician: Cherrie Indications: Date: 11/18/2019 16:30 At the request of: SAIDA DENT Procedure: MM screening mammo BI BILATERAL DIGITAL SCREENING MAMMOGRAM 3D/2D WITH CAD: 11/18/2019 CLINICAL: Routine screening. Family history of breast cancer. Comparison is made to exams dated: 11/13/2018 mammogram, 11/12/2017 mammogram, and 11/08/2016 mammogram - [facility]. There are scattered fibroglandular elements in both breasts. Current study was also evaluated with a Computer Aided Detection (CAD) system. No significant masses, calcifications, or other findings are seen in either breast. There has been no significant interval change. IMPRESSION: NEGATIVE There is no mammographic evidence of malignancy. A 1 year screening mammogram is recommended. This exam was interpreted at Station ID: [id number]. NOTE: For mammograms, a report in lay terms will be sent to the patient. Approximately 15% of breast malignancies will not be visualized mammographically. In the management of a palpable breast mass, a negative mammogram must not discourage biopsy of a clinically suspicious lesion. Electronically Signed By: Enoch Cox M.D., jr/hilda:11/18/2019 16:39:11 letter sent: Normal Exam ACR BI-RADS Category 1: Negative 3341F
== END ==
PROVIDERS: PCP Family Medicine; Referring Provider Family Medicine; Visit Provider Family Medicine
DX: Z12.31 Encounter for screening mammogram for malignant neoplasm of breast (principal); Z80.3 Family history of malignant neoplasm of breast
CPT/HCPCS: 77063; 77067

== ENCOUNTER → 2020-03-30 10:05 | Outpatient (CLI) | payer OTHER, SELFPAY ==
[2020-03-30 11:15] LABS: Alanine Aminotransferase 18 IU/L (<35); Albumin 4.4 g/dL (3.5-5.0); Albumin Globulin Ratio 1.5 (1.0-2.8); Alkaline Phosphatase 86 U/L (38-126); Aspartate Aminotransferase 35 IU/L (14-36); BUN Creatinine Ratio 21.2 (6-22); Bilirubin Total 0.4 mg/dL (0.2-1.3); Blood Urea Nitrogen 14 mg/dL (7-17); Calcium 9.1 mg/dL (8.4-10.2); Carbon Dioxide 31 mmol/L (22-32); Chloride 103 mmol/L (98-107); Cholesterol 234 mg/dL (140-199); Estimated Glomerular Filt Rate > 60.0 mL/min (>60); Glucose 96 mg/dL (70-100); HDL Cholesterol 49 mg/dL (40-60); HEMOLYSIS < 15 (0-50); LDL Cholesterol Calculated 146 mg/dL (<100); Potassium 3.9 mmol/L (3.4-5.1); Sodium 139 mmol/L (137-145); Total Protein 7.4 g/dL (6.3-8.2); Triglycerides 195 mg/dL (35-150)
[2020-03-30 11:49] LABS: Thyroid Stimulating Hormone 0.671 uIU/mL (0.47-4.68)
== END ==
PROVIDERS: PCP Family Medicine; Referring Provider Family Medicine; Visit Provider Family Medicine
DX: E03.9 Hypothyroidism, unspecified (principal); Z13.220 Encounter for screening for lipoid disorders; K76.0 Fatty (change of) liver, not elsewhere classified
CPT/HCPCS: 36415; 80053; 80061; 84443

== ENCOUNTER 2020-04-03 01:27 | Emergency (ER) | payer OTHER, SELFPAY ==
[2020-04-03 01:30] VITALS: BP 111/69; PULSE 83; RESP 12; TEMP 36.1; O2SAT 99; BMI 27.4
[2020-04-03] MEDS: ONDANSETRON 4 MG ODT SL (01:32)
--- NOTE | 2020-04-03 01:39 | ED.FALL ---
HPI - Fall General Chief Complaint: Fall Stated Complaint: GLF Time Seen by Provider: 04/03/20 01:30 Source: patient and EMS Mode of arrival: EMS History of Present Illness HPI Narrative: 54-year-old woman with a history of hypothyroidism and depression apparently had a couple of drinks this evening was feeling somewhat unsteady and stumbled in the bathroom falling into the bath tub and scraping the side of her head against the wall. Her has been heard the incident and came to check on her and found quite a bit of blood from a wound to the right side of her head. 911 was called. She complains of no significant pain but is significantly nauseated and looks unsteady from her acute intoxication. Her describes a fairly normal day with no recent illnesses, fevers, cough, chills, weakness, abdominal pain. He does note that they had a number of drinks and he was asleep when she got up to go the bathroom and awoke him with her fall. Thinks that her head hit the edge of the spout on the jetted tub. He describes quite a bit of blood loss but no loss of consciousness. Related Data Previous Rx's Medication Instructions Recorded levothyroxine 88 mcg tablet 88 mcg PO DAILY #90 tab 01/19/20 fluoxetine 10 mg capsule See Rx Instructions .ROUTE 03/18/20 .COMPLEX #90 cap CMP Testosterone 2% See Rx Instructions .ROUTE 03/22/20 .COMPLEX #30 gram Allergies Allergy/AdvReac Type Severity Reaction Status Date / Time No Known Drug Allergies Allergy Verified 04/03/20 01:33 Review of Systems Review of Systems ROS Unobtainable: All systems reviewed & are unremarkable except as noted in HPI and below Patient History Medical History Abnormal chest xray (~2017) Abnormal Pap smear of cervix (~2003) Chicken pox (~1968) Family hx of colon cancer Fatty liver Hypothyroidism (~1993) Painful menstrual periods (~1979) Restless leg syndrome (~1989) Shoulder pain (~2017) Skin cancer (~2001) Surgical History Anesthesia Branchial cleft cyst (~1975) History of section (~2000) History of section (~2001) Throat papilloma (~2004) [place] teeth removed (~1982) Family History Father Alcoholism Smoker Mother Hyperlipidemia Hypertension Sister Rectal cancer Grandfather Hyperlipidemia Hypertension Heart disease Grandmother Diabetes mellitus Hypertension Stroke Grandfather Hyperlipidemia Hypertension Grandmother Hypertension Diabetes mellitus Social History marital status: household members: family lives independently: Yes caregiver/support person: No housing: house education level: college occupational status: employed Smoking Status: Never smoker second hand exposure: No alcohol intake: current substance use type: does not use Smoking Status: Never smoker alcohol intake frequency: a few times a month Alcohol type: wine Substance Use Type: does not use Exam Narrative Exam Narrative: General: Appears intoxicated, nauseated, will respond to direct questions, no active bleeding but quite a bit of matted blood in the right side of her head and hair HEENT: Moist mucous membranes, injected sclera with reactive pupils, right side of head and hair is matted with blood with no active bleeding. After cleaning, 3cm full thickness laceration to the Right parietal area in noted. Neck: No JVD, supple, no paraspinous muscle spasm , but she does note mild C6, C7 tenderness to palpation Respiratory: Lungs are clear to auscultation, no wheezing no rales no rhonchi. Full and symmetrical air movement Cardiac: Regular rate and rhythm no murmurs no bruits Abdomen: Soft, nontender, good bowel tones, no flank pain Skin: Warm and dry, no rashes Neurologic: Grossly neurologically intact with no obvious asymmetries or abnormalities Extremities: No trauma, well perfused Psych: Mild intoxication with significant nausea but can appropriately answer direct questions Initial Vital Signs Initial Vital Signs: Vital Signs Temperature 96.9 F L 04/03/20 01:30 Pulse Rate 83 04/03/20 01:30 Respiratory Rate 12 04/03/20 01:30 Blood Pressure 111/69 04/03/20 01:30 Pulse Oximetry 99 04/03/20 01:30 Course Orders Ordered: ED Orders 04/03/20 03:24 CT cervical spine wo con Stat CT head/brain wo con Stat Discontinued Medications Sodium Chloride (Normal Saline 0.9%) 1,000 mls @ 1,000 mls/hr IV BOLUS ONE Stop: 04/03/20 02:59 Last Infusion: 04/03/20 03:22 Dose: 0 mls/hr Documented by: Admin: 04/03/20 02:03 Dose: 1,000 mls/hr Documented by: SERGIO Lidocaine/Sodium Bicarbonate (Lido 1%/Sod Bicarb 8.4% (10ml) 10 Ml Syringe) 10 ml INJ NOW ONE Stop: 04/03/20 03:24 Last Admin: 04/03/20 03:32 Dose: 10 ml Documented by: SERGIO Ondansetron HCl (Ondansetron 4 Mg Odt) 4 mg SL NOW ONE Stop: 04/03/20 01:30 Last Admin: 04/03/20 01:32 Dose: 4 mg Documented by: SERGIO Vital Signs Vital signs: Vital Signs - 8 hr 04/03/20 01:30 Temperature 96.9 F L Pulse Rate 83 Respiratory Rate 12 Blood Pressure 111/69 Pulse Oximetry 99 MDM - Fall Medical Records Attestation: I reviewed the patient's medical records. Imaging Data CT scan - head: Radiologist's Impression: No intracranial hemorrhage or mass effect eLonardo Andrade MD CT - cervical spine: Radiologist's Impression: No acute findings Jose Armando Sutherland MD [facility] Narrative Medical decision making narrative: 54-year-old woman who had a dinner part of the side evening and drink more wine than she typically does. With a bit unsteady, fell in the bathroom suffering a laceration to the back for head that was easily closed with antoinette. CT of the head neck were unremarkable. She is clearly doing better at this point. There are no signs of other trauma beyond the laceration to the head. She is safe for home discharge Discharge Plan Departure Patient Disposition: Home Clinical Impression: Laceration Brain concussion Qualifiers: Encounter type: initial encounter Loss of consciousness presence/duration: without LOC Qualified Code(s): S06.0X0A - Concussion without loss of consciousness, initial encounter Alcohol intoxication Qualifiers: Complication of substance-induced condition: uncomplicated Qualified Code(s): F10.920 - Alcohol use, unspecified with intoxication, uncomplicated Fall Qualifiers: Encounter type: initial encounter Qualified Code(s): W19.XXXA - Unspecified fall, initial encounter Instructions: DI for Concussion, DI for Laceration Repair -- Antoinette Activity Restrictions/Additional Instructions: Thank you for coming in today That CT scan of your head and cervical spine were both very reassuring. You do have a mild concussion but no evidence of intracranial hemorrhage. Laceration to the back of your head was actually quite a bit bigger than initially anticipated. Was approximately 5 cm with a large flap. Was cleaned nicely and antoinette were used to reapproximate the edges. When you get home tonight, with the wound still anesthetized, I would recommend getting into the shower to get the remainder of the blood out of your hair. Use water only and then pat the area dry. Do expect a bit of oozing. Will be safe to remove the antoinette on or about April 13. If you have worsening symptoms or any evidence of infection around the laceration to your scalp, please return to the ER for further evaluation. I hope you feel better Prescriptions: No Action levothyroxine 88 mcg tablet 88 mcg PO DAILY Qty: 90 RF: 0 fluoxetine 10 mg capsule See Rx Instructions .ROUTE .COMPLEX Qty: 90 RF: 0 CMP Testosterone 2% See Rx Instructions .ROUTE .COMPLEX Qty: 30 RF: 3 Referrals: Kristin Grier MD [Primary Care Provider] -
[2020-04-03] MEDS: SODIUM CHLORIDE 0.9% 1,000 ML 1000 ML IV (02:03)
--- NOTE | 2020-04-03 03:24 | DI.CT.S_ITS ---
PROCEDURE: CT CERVICAL SPINE WO CON INDICATIONS: fall, tender midline neck TECHNIQUE: Noncontrast 3 mm thick sections acquired from the skull base to the T4 level. Sagittal and coronal reformats were then constructed. For radiation dose reduction, the following was used: automated exposure control, adjustment of mA and/or kV according to patient size. COMPARISON: None. FINDINGS: Image quality: Excellent. Bones: No fractures or dislocations. Visualized superior ribs are intact. There is straightening of the normal cervical lordosis. There is minimal anterolisthesis of C4 on C5 and retrolisthesis of C5 on C6. There is near complete intervertebral disc space loss at C5-C6 with endplate degenerative changes. There is marked facet arthropathy of the left C4-4 C5 facet joints. No significant spinal canal stenosis. Very mild neural foraminal stenosis C5-C6 bilaterally. Mild bony neural foraminal stenosis on the left at C4-C5. Soft tissues: Prevertebral soft tissues are normal in thickness. No paravertebral hematomas. No apical pneumothoraces. IMPRESSION: No acute fracture. Degenerative changes of the cervical spine at C4-C5 and C5-C6 as above. No significant discrepancy of preliminary report. Dictated by: Amarjit Aly D.O. on 04/03/2020 at 8:21 Approved by: Amarjit Aly D.O. on 04/03/2020 at 8:26
--- NOTE | 2020-04-03 03:24 | DI.CT.S_ITS ---
PROCEDURE: CT HEAD/BRAIN WO CON INDICATIONS: fall, intoxicated, head injury TECHNIQUE: Noncontrast 4.5 mm thick angled axial sections acquired from the foramen magnum to the vertex, with coronal and sagittal reformats. For radiation dose reduction, the following was used: automated exposure control, adjustment of mA and/or kV according to patient size. COMPARISON: None. FINDINGS: Image quality: Excellent. CSF spaces: Basal cisterns are patent. No extra-axial fluid collections. Ventricles are normal in size and shape. Brain: No midline shift. No intracranial masses or hemorrhage. Daly-white matter interface is normal. Skull and face: Calvarium and visualized facial bones are intact, without suspicious lesions. Soft tissue injury overlying the superior right posterior lateral scalp with likely laceration and soft tissue swelling along with subcutaneous emphysema. Sinuses: Visualized sinuses and mastoids are clear. IMPRESSION: Soft tissue injury overlying the superior right posterolateral scalp. No acute intracranial hemorrhage or calvarial fracture. Agree with preliminary report. Dictated by: Amarjit Aly D.O. on 04/03/2020 at 8:17 Approved by: Amarjit Aly D.O. on 04/03/2020 at 8:21
[2020-04-03] MEDS: LIDO 1%/SOD BICARB 8.4% (10ML) 10 ML SYRINGE INJ (03:32)
[2020-04-03 04:59] VITALS: BP 99/60; PULSE 97; RESP 16; O2SAT 97
== END 2020-04-03 05:28 | disposition home or self-care (01) ==
PROVIDERS: Emergency Provider Emergency Medicine; PCP Family Medicine
DX: S06.0X0A Concussion without loss of consciousness, initial encounter (principal); S01.01XA Laceration without foreign body of scalp, initial encounter; F10.129 Alcohol abuse with intoxication, unspecified; R11.0 Nausea; W19.XXXA Unspecified fall, initial encounter
CPT/HCPCS: 12002; 36415; 70450; 72125; 96360; 99283; 99284

== ENCOUNTER → 2020-12-15 17:43 | Outpatient (CLI) | payer OTHER, SELFPAY ==
--- NOTE | 2020-12-15 | DI.MG.S_ITS ---
BILATERAL DIGITAL SCREENING MAMMOGRAM 3D/2D WITH CAD: 12/15/2020 CLINICAL: Routine screening. Family history of breast cancer. Comparison is made to exams dated: 11/18/2019 mammogram, 11/13/2018 mammogram, and 11/12/2017 mammogram - [facility]. There are scattered fibroglandular elements in both breasts. Current study was also evaluated with a Computer Aided Detection (CAD) system. No significant masses, calcifications, or other findings are seen in either breast. There has been no significant interval change. IMPRESSION: NEGATIVE There is no mammographic evidence of malignancy. A 1 year screening mammogram is recommended. This exam was interpreted at Station ID: [id number]. NOTE: For mammograms, a report in lay terms will be sent to the patient. Approximately 15% of breast malignancies will not be visualized mammographically. In the management of a palpable breast mass, a negative mammogram must not discourage biopsy of a clinically suspicious lesion. Electronically Signed By: Virgil olivarez/hilda:12/16/2020 10:13:32 letter sent: Normal Exam ACR BI-RADS Category 1: Negative 3341F
== END ==
PROVIDERS: PCP Family Medicine; Referring Provider Family Medicine; Visit Provider Family Medicine
DX: Z12.31 Encounter for screening mammogram for malignant neoplasm of breast (principal); Z80.3 Family history of malignant neoplasm of breast
CPT/HCPCS: 77063; 77067

== ENCOUNTER → 2021-05-08 11:06 | Outpatient (CLI) | payer OTHER, SELFPAY | PROVIDERS: PCP Family Medicine; Referring Provider Family Medicine; Visit Provider Family Medicine | DX: Z01.818 Encounter for other preprocedural examination (principal) | CPT/HCPCS: 93005 ==

== ENCOUNTER → 2021-05-16 12:28 | Outpatient (CLI) | payer OTHER, SELFPAY ==
--- NOTE | 2021-05-16 12:30 | DI.US.S_ITS ---
PROCEDURE: US PELVIC COMPLETE INDICATIONS: PAIN TECHNIQUE: Real-time scanning was performed of the pelvic organs, with image documentation. Additional endovaginal scanning was necessary due to incomplete visualization of the adnexal and endometrial structures by transabdominal scanning. COMPARISON: [facility], , US PELVIC COMPLETE, 10/10/2018, 12:21. FINDINGS: Uterus: Uterus is anteverted and normal in size at 5.1 x 2.7 x 4.1 cm. The myometrium is mildly heterogeneous. The endometrium measures 2.7 mm combined thickness. No uterine fibroids. Ovaries: Normal right ovary measuring 1.2 x 0.7 x 1.9 cm. Left ovary not visualized. No adnexal masses seen. Other: No pathologic free abdominal or pelvic fluid. IMPRESSION: No significant abnormality. We strive to produce accurate, complete, and clear reports of imaging services. To assist us in improving patient care, this report was composed using standard report templates and voice recognition software. Therefore, it may contain abnormal punctuation, insertions and/or omissions. Occasional wrong-word or sound-alike substitutions may occur. Though we review the report and make efforts to correct it, we do recommend that the report be read carefully in proper context to recognize any text inaccuracies. Dictated by: Marcus BEY Interpreted: Maxime Yao MD on 05/16/2021 at 15:04 Transcribed by: BETHANY on 05/16/2021 at 15:05 Approved by: Maxime Yao M.D. on 05/17/2021 at 10:41
== END ==
PROVIDERS: PCP Family Medicine; Referring Provider Obstetrics & Gynecology; Visit Provider Obstetrics & Gynecology
DX: R10.2 Pelvic and perineal pain (principal)
CPT/HCPCS: 76830; 76856

== ENCOUNTER → 2021-06-05 12:03 | Outpatient (CLI) | payer OTHER, SELFPAY ==
[2021-06-05 13:41] LABS: Alanine Aminotransferase 36 IU/L (<35); Albumin 4.5 g/dL (3.5-5.0); Albumin Globulin Ratio 1.4 (1.0-2.8); Alkaline Phosphatase 89 U/L (38-126); Aspartate Aminotransferase 36 IU/L (14-36); BUN Creatinine Ratio 15.5 (6-22); Bilirubin Total 0.5 mg/dL (0.2-1.3); Blood Urea Nitrogen 11 mg/dL (7-17); Calcium 9.4 mg/dL (8.4-10.2); Carbon Dioxide 27 mmol/L (22-32); Chloride 104 mmol/L (98-107); Cholesterol 304 mg/dL (140-199); Estimated Glomerular Filt Rate > 60.0 mL/min (>60); Globulin 3.2 g/dL (1.7-4.1); Glucose 92 mg/dL (70-100); HDL Cholesterol 56 mg/dL (40-60); HEMOLYSIS < 15 (0-50); LDL Cholesterol Calculated 212 mg/dL (<100); Sodium 138 mmol/L (137-145); Total Protein 7.7 g/dL (6.3-8.2); Triglycerides 182 mg/dL (35-150)
[2021-06-05 14:15] LABS: Thyroid Stimulating Hormone 0.228 uIU/mL (0.47-4.68)
== END ==
PROVIDERS: PCP Family Medicine; Referring Provider Family Medicine; Visit Provider Family Medicine
DX: E03.9 Hypothyroidism, unspecified (principal); K76.0 Fatty (change of) liver, not elsewhere classified
CPT/HCPCS: 36415; 80053; 80061; 84443

== ENCOUNTER 2021-09-12 20:20 | Emergency (ER) | payer OTHER, SELFPAY ==
[2021-09-12 20:29] VITALS: BP 164/86; PULSE 79; RESP 16; TEMP 35.7; O2SAT 99; BMI 28.2
--- NOTE | 2021-09-12 20:35 | DI.US.S_ITS ---
PROCEDURE: US PERIPH VENOUS LOW EXTREM LT INDICATIONS: PAIN, EDEMA; RECENT TRAVEL TECHNIQUE: Real-time imaging, as well as color and pulse Doppler interrogation, were performed of the lower extremity deep veins from the inguinal ligament to the popliteal fossa. COMPARISON: None. FINDINGS: The common femoral, femoral and popliteal veins are normally compressible, and free of intraluminal thrombus. Color and pulse Doppler demonstrate normal phasic intraluminal flow. There is normal augmentation response to distal compression maneuver. There is an irregular fluid collection in the popliteal fossa measuring approximately 3.0 x 0.4 x 2.5 cm. Findings are suggestive of a small Lamb's cyst. IMPRESSION: 1. No evidence of deep venous thrombosis in the left lower extremity. Dictated by: Ab Up M.D. on 09/12/2021 at 22:37 Approved by: Ab Up M.D. on 09/12/2021 at 22:39
--- NOTE | 2021-09-12 20:42 | ED.EXTPRO ---
HPI - Extremity Problem General Chief complaint: Extremity Problem,Nontraumatic Stated complaint: rt leg swollen, warm, painful Time Seen by Provider: 09/12/21 20:22 Mode of arrival: Family Vehicle History of Present Illness HPI Narrative: 55-year-old female nonsmoker with history of hypothyroid and hyperlipidemia presents for evaluation of some pain and swelling behind her left for the past day or 2. She denies any known injury nor history of the same. She denies any chest pain or shortness of breath and has had no fever or chills. She states that she feels fullness when ambulating and seems to improve with rest, she states that her left calf was notably swollen yesterday. She denies any history of blood clot but has had long distance travel and she and family are concerned about the possibility of a deep vein thrombosis. Related Data Previous Rx's Medication Instructions Recorded alprazolam 0.25 mg tablet 0.25 mg PO TID PRN anxiety #10 tabs 10/17/20 atorvastatin 20 mg tablet See Rx Instructions .Route 08/22/21 .COMPLEX #90 tabs levothyroxine 75 mcg tablet See Rx Instructions .Route 08/22/21 .COMPLEX #90 tabs Allergies Allergy/AdvReac Type Severity Reaction Status Date / Time No Known Drug Allergies Allergy Verified 09/12/21 20:32 Review of Systems Review of Systems Narrative: GENERAL: See HPI HEENT: Denies sinus pain, ear pain, sore throat, difficulty swallowing, dizziness. RESPIRATORY: See HPI CARDIOVASCULAR: Denies chest pain, palpitations, orthopnea, edema, GASTROINTESTINAL: Denies nausea, vomiting, abdominal pain, diarrhea, constipation, melena. : Denies dysuria, frequency, incontinence, hematuria, urinary retention. MUSCULOSKELETAL: See HPI SKIN: Denies rash, skin lesions, or other NEUROLOGIC: Denies weakness, headache, numbness, change in speech, confusion, seizures, incoordination. PSYCHIATRIC: No concerning psychosocial issues. 12 point review of systems is negative except for those stated above Patient History Medical History Abnormal chest xray (~2017) Abnormal Pap smear of cervix (~2003) Chicken pox (~1968) Family hx of colon cancer Fatty liver Hypothyroidism (~1993) Painful menstrual periods (~1979) Restless leg syndrome (~1989) Shoulder pain (~2017) Skin cancer (~2001) Surgical History Anesthesia Branchial cleft cyst (~1975) History of section (~2000) History of section (~2001) Throat papilloma (~2004) [place] teeth removed (~1982) Family History Father Alcoholism Smoker Mother Hyperlipidemia Hypertension Sister Rectal cancer Grandfather Hyperlipidemia Hypertension Heart disease Grandmother Diabetes mellitus Hypertension Stroke Grandfather Hyperlipidemia Hypertension Grandmother Hypertension Diabetes mellitus Social History marital status: household members: family lives independently: Yes caregiver/support person: No housing: house education level: college occupational status: employed Smoking Status: Never smoker second hand exposure: No alcohol intake: current substance use type: does not use Smoking Status: Never smoker alcohol intake frequency: a few times a month Alcohol type: wine Substance Use Type: does not use Exam Narrative Exam Narrative: GEN: AOx3 and in mild distress EYES: Pupils are equal, round, and reactive to light and accommodation. Extraoccular muscles are intact bilaterally. There is no subconjunctival hemorrhage or exudate. CHEST: Lungs are clear to auscultation bilaterally and free of wheezes, rales, or rhonchi. Heart rate is regular rhythm, there are no murmurs, clicks, rubs, or gallops. There is no chest wall tenderness. ABD: Abdomen is soft and nontender. There is no guarding or rebound. Bowel sounds are normal in all 4 quadrants. There is no mass or organomegaly. EXT: Full painless ROM of all extremities with no loss of sensation or strength. Bilateral calf circumference 40.5 cm. There is minimal erythema, warmth and tenderness in the left popliteal fossa, no medial thigh pain or swelling SKIN: Warm, pink, and dry. No erythema or rash Initial Vital Signs Initial Vital Signs: Vital Signs Temperature 96.3 F L 09/12/21 20:29 Pulse Rate 79 09/12/21 20:29 Respiratory Rate 16 09/12/21 20:29 Blood Pressure 164/86 H 09/12/21 20:29 Pulse Oximetry 99 09/12/21 20:29 Oxygen Delivery Method 09/12/21 20:29 Course Orders Ordered: ED Orders 09/12/21 20:35 US periph venous low extrem lt Stat Vital Signs Vital signs: Vital Signs - 8 hr 09/12/21 20:29 09/12/21 22:58 Temperature 96.3 F L Pulse Rate 79 65 Respiratory Rate 16 16 Blood Pressure 164/86 H 128/76 Pulse Oximetry 99 98 Oxygen Delivery Method Room Air Room Air MDM - Extremity (Nontraumatic) Imaging Data US - DVT: Radiologist's Impression: [address] [address] Ultrasound Report Signed Patient: Mackenzie Gr MR#: [id number] : 1965 Acct:[id number] Age/Sex: 55 / F Date of Service: 09/12/21 Loc: ED Accession Number: [id number] ?? Procedure: US periph venous low extrem lt Ordering Provider: Matti Silva D.O. PROCEDURE:? US PERIPH VENOUS LOW EXTREM LT ? INDICATIONS:? PAIN, EDEMA; RECENT TRAVEL ? TECHNIQUE:? Real-time imaging, as well as color and pulse Doppler interrogation, were performed of the lower extremity deep veins from the inguinal ligament to the popliteal fossa.? ? COMPARISON:? None. ? FINDINGS:? The common femoral, femoral and popliteal veins are normally compressible, and free of intraluminal thrombus.? Color and pulse Doppler demonstrate normal phasic intraluminal flow.? There is normal augmentation response to distal compression maneuver. ? There is an irregular fluid collection in the popliteal fossa measuring approximately 3.0 x 0.4 x 2.5 cm.? 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 ? IMPRESSION:? ? 1. No evidence of deep venous thrombosis in the left lower extremity. ? ? Dictated by: Ab Up M.D. on 09/12/2021 at 22:37 ? ? Approved by: Ab Up M.D. on 09/12/2021 at 22:39? Discharge Plan Departure Patient Disposition: Home Clinical Impression: Lamb's cyst Activity Restrictions/Additional Instructions: *You have been diagnosed with [small Lamb cyst behind her left knee. There is no evidence of a blood clot or infection. No specific treatment needed at this time] *What to do: *Please continue to take your regular medications as directed. [ ] New medication prescriptions sent to your pharmacy: [ ] [ ] New medication written as a paper prescription [x ] No new medications given *Please follow up with your primary care provider in 2-3 days, call for an appointment. Let them know you were seen in the Emergency Department and that we ask that you be seen in follow up. We will electronically transmit a record of today's note if your PCP is in our system *If you do not have a primary care provider please contact the [facility] Resource line at [phone]. They will ask some questions about your medical history and help get you set up with a doctor in the community. *Return to Emergency Department if you should have any new, worsening or concerning symptoms, such as [fever greater than 101 F, shaking chills, worsening pain, persistent vomiting or other bothersome symptoms] Prescriptions: No Action alprazolam 0.25 mg tablet 0.25 mg PO TID PRN (Reason: anxiety) Qty: 10 0RF levothyroxine 75 mcg tablet See Rx Instructions .ROUTE .COMPLEX Qty: 90 0RF Dose Instruction: TAKE 1 TABLET DAILY IN THE MORNING (FOLLOW UP TSH IN 6 WEEKS) Rx Instructions: TAKE 1 TABLET DAILY IN THE MORNING (FOLLOW UP TSH IN 6 WEEKS) atorvastatin 20 mg tablet See Rx Instructions .ROUTE .COMPLEX Qty: 90 3RF Dose Instruction: TAKE 1 TABLET DAILY (FOLLOW UP FASTING LIPID LEVEL IN 3 MONTHS) Rx Instructions: TAKE 1 TABLET DAILY (FOLLOW UP FASTING LIPID LEVEL IN 3 MONTHS) Referrals: Kristin Grier MD [Primary Care Provider] - Visit Report Forms: Patient Portal/API
[2021-09-12 22:58] VITALS: BP 128/76; PULSE 65; RESP 16; O2SAT 98
== END 2021-09-12 22:58 | disposition home or self-care (01) ==
PROVIDERS: Emergency Provider Emergency Medicine; PCP Family Medicine
DX: M71.22 Synovial cyst of popliteal space [Baker], left knee (principal)
CPT/HCPCS: 93971; 99281; 99283

== ENCOUNTER → 2021-09-20 09:29 | Outpatient (CLI) | payer OTHER, SELFPAY ==
[2021-09-20 11:35] LABS: Cholesterol 133 mg/dL (140-199); HDL Cholesterol 45 mg/dL (40-60); LDL Cholesterol Calculated 71 mg/dL (<100); Triglycerides 83 mg/dL (35-150)
[2021-09-20 11:53] LABS: Thyroid Stimulating Hormone 0.253 uIU/mL (0.47-4.68)
== END ==
PROVIDERS: PCP Family Medicine; Referring Provider Family Medicine; Visit Provider Family Medicine
DX: E78.00 Pure hypercholesterolemia, unspecified (principal); E03.9 Hypothyroidism, unspecified
CPT/HCPCS: 36415; 80061; 84443

== ENCOUNTER → 2021-12-15 13:09 | Outpatient (CLI) | payer OTHER, SELFPAY ==
[2021-12-15 16:14] LABS: TSH w/ Reflex to FT4 5.64 uIU/mL (0.47-4.68)
[2021-12-15 16:43] LABS: Free T4, Direct Thyroxine 0.92 ng/dL (0.78-2.19)
== END ==
PROVIDERS: PCP Family Medicine; Referring Provider Family Medicine; Visit Provider Family Medicine
DX: E03.9 Hypothyroidism, unspecified (principal)
CPT/HCPCS: 36415; 84439; 84443

== ENCOUNTER → 2022-02-15 13:16 | Outpatient (CLI) | payer OTHER, SELFPAY ==
[2022-02-15 15:17] LABS: TSH w/ Reflex to FT4 0.19 uIU/mL (0.47-4.68)
[2022-02-15 15:41] LABS: Free T4, Direct Thyroxine 1.31 ng/dL (0.78-2.19)
== END ==
PROVIDERS: PCP Family Medicine; Referring Provider Family Medicine; Visit Provider Family Medicine
DX: E03.9 Hypothyroidism, unspecified (principal)
CPT/HCPCS: 36415; 84439; 84443

== ENCOUNTER → 2022-04-12 14:09 | Outpatient (CLI) | payer OTHER, SELFPAY ==
[2022-04-12 14:49] LABS: Add Manual Diff / Slide Review NO; Basophils Absolute Auto 100 /uL (0-100); Basophils Percent Auto 1.4 % (0-2); Eosinophils Absolute Auto 100 /uL (0-450); Eosinophils Percent Auto 2.3 % (2-4); Hematocrit 36.7 % (36-46); Hemoglobin 12.5 g/dL (12.0-16.0); Lymphocytes Absolute Auto 2300 /uL (1100-4500); Lymphocytes Percent Auto 37.3 % (25-40); Mean Corpuscular HGB Conc 34.1 % (30-36); Mean Corpuscular Hemoglobin 30.6 PG (26-34); Mean Corpuscular Volume 89.9 fL (80-100); Monocytes Absolute Auto 600 /uL (0-900); Monocytes Percent Auto 9.2 % (3-14); Neutrophils Absolute Auto 3100 /uL (1500-7000); Neutrophils Percent Auto 49.8 % (50-75); Platelet Count 297 X10^3/uL (150-400); Red Blood Cell Count 4.08 X10^6/uL (4.0-5.2); Red Cell Distribution Width 13.3 % (11.6-14.8); White Blood Cell Count 6.3 X10^3/uL (4.5-11.0)
[2022-04-12 16:15] LABS: TSH w/ Reflex to FT4 0.87 uIU/mL (0.47-4.68)
== END ==
PROVIDERS: PCP Family Medicine; Referring Provider Family Medicine; Visit Provider Family Medicine
DX: E03.9 Hypothyroidism, unspecified (principal); D64.9 Anemia, unspecified
CPT/HCPCS: 36415; 84443; 85025

== ENCOUNTER → 2022-12-20 | Outpatient (CLI) | payer OTHER, SELFPAY | PROVIDERS: PCP Family Medicine; Referring Provider Family Medicine; Visit Provider Family Medicine | DX: Z23 Encounter for immunization (principal) | CPT/HCPCS: 90471; 90686 ==

== ENCOUNTER → 2022-12-31 14:26 | Outpatient (CLI) | payer OTHER, SELFPAY ==
--- NOTE | 2022-12-31 | DI.MG.S_ITS ---
BILATERAL DIGITAL SCREENING MAMMOGRAM 3D/2D WITH CAD: 12/31/2022 CLINICAL: Routine screening. Family history of breast cancer. Comparison is made to exams dated: 12/15/2020 mammogram, 11/18/2019 mammogram, and 11/13/2018 mammogram - [facility]. There are scattered areas of fibroglandular density in both breasts (category b / 25%-50% glandular tissue). Current study was also evaluated with a Computer Aided Detection (CAD) system. No significant masses, calcifications, or other findings are seen in either breast. There has been no significant interval change. IMPRESSION: NEGATIVE There is no mammographic evidence of malignancy. A 1 year screening mammogram is recommended. Based on the Tyrer Cuzick model (a risk assessment model) the patient's lifetime risk is 14.0% and her 10 year risk is 5.5%. According to the ACR, ACS, and NCCN guidelines, an annual breast MRI exam along with mammogram is recommended if the patient's lifetime risk is 20% or greater. This exam was interpreted at Station ID: [id number]. NOTE: For mammograms, a report in lay terms will be sent to the patient. Approximately 15% of breast malignancies will not be visualized mammographically. In the management of a palpable breast mass, a negative mammogram must not discourage biopsy of a clinically suspicious lesion. Electronically Signed By: Virgil olivarez/hlida:01/01/2023 16:31:25 letter sent: Normal Exam ACR BI-RADS Category 1: Negative [id number]
== END ==
PROVIDERS: PCP Family Medicine; Referring Provider Family Medicine; Visit Provider Family Medicine
DX: Z12.31 Encounter for screening mammogram for malignant neoplasm of breast (principal); Z80.3 Family history of malignant neoplasm of breast
CPT/HCPCS: 77063; 77067

== ENCOUNTER → 2023-03-25 11:39 | Outpatient (CLI) | payer OTHER, SELFPAY ==
[2023-03-25 12:46] LABS: Alanine Aminotransferase 21 IU/L (<35); Albumin 4.4 g/dL (3.5-5.0); Albumin Globulin Ratio 1.5 (1.0-2.8); Alkaline Phosphatase 79 U/L (38-126); Aspartate Aminotransferase 30 IU/L (14-36); BUN Creatinine Ratio 16.9 (6-22); Bilirubin Total 0.7 mg/dL (0.2-1.3); Blood Urea Nitrogen 11 mg/dL (7-17); Calcium 9.8 mg/dL (8.4-10.2); Carbon Dioxide 28 mmol/L (22-32); Chloride 102 mmol/L (98-107); Cholesterol 146 mg/dL (140-199); Estimated Glomerular Filt Rate > 60 mL/min (>60); Glucose 89 mg/dL (70-100); HDL Cholesterol 53 mg/dL (40-60); HEMOLYSIS < 15 (0-50); LDL Cholesterol Calculated 68 mg/dL (<100); Potassium 4.6 mmol/L (3.4-5.1); Sodium 137 mmol/L (137-145); Total Protein 7.4 g/dL (6.3-8.2); Triglycerides 123 mg/dL (35-150)
[2023-03-25 13:16] LABS: TSH w/ Reflex to FT4 1.08 uIU/mL (0.47-4.68)
== END ==
LOC: LAB 11:44
PROVIDERS: PCP Family Medicine; Referring Provider Family Medicine; Visit Provider Family Medicine
DX: E03.9 Hypothyroidism, unspecified (principal)
CPT/HCPCS: 36415; 80053; 80061; 84443

== ENCOUNTER → 2023-05-20 11:51 | Outpatient (CLI) | payer OTHER, SELFPAY ==
[2023-05-20 12:47] LABS: Influenza A - CEPHEID Flu A POSITIVE (NEGATIVE); Influenza B - CEPHEID Flu B NEGATIVE (NEGATIVE); Respiratory Syncytial Virus Negative (Negative)
[2023-05-20 12:58] LABS: COVID-19 CEPHEID 4-PLEX PCR Negative (Negative)
== END ==
PROVIDERS: PCP Family Medicine; Visit Provider Family Medicine
DX: Z20.828 Contact with and (suspected) exposure to other viral communicable diseases (principal)
CPT/HCPCS: 0241U

== ENCOUNTER → 2023-08-07 10:17 | Outpatient (CLI) | payer OTHER, SELFPAY ==
--- NOTE | 2023-08-07 10:19 | DI.RAD.S_ITS ---
PROCEDURE: XR DEXA AXIAL SKELETON INDICATIONS: screening for osteoporosis COMPARISON: None. FINDINGS: Lumbar Spine: Bone mineral density 0.896 g/cm2, T score -1.4. Left Hip: Bone mineral density 0.976 g/cm2, T score 0.3. Left Femoral Neck: Bone mineral density 0.788 g/cm2, T score -0.6. Right Hip: Bone mineral density 0.942 g/cm2, T score 0.0. Right Femoral Neck: Bone mineral density 0.769 g/cm2, T score -0.7. Fracture Risk Calculation (when applicable): 10-year fracture risk of a major osteoporotic fracture 6.6% and of a hip fracture 0.3%. (T score greater or equal to -1.0 to: NORMAL) (T score from -1.1 to -2.4: OSTEOPENIA) (T score less than or equal to -2.5: OSTEOPOROSIS) IMPRESSION: Osteopenia Follow-up guidelines as follows: Osteoporosis: Consider a repeat DEXA and Vertebral Fracture Assessment (VFA) exam in 2 years or sooner if medically necessary, to reassess this patient's status. Osteopenia: Consider a repeat DEXA in 2-3 years to reassess this patient's status, or if there is a new clinical indication. Normal: Consider a repeat DEXA in 5 years or sooner, or if there is a new clinical indication. All treatment decisions require clinical judgment and consideration of individual patient factors, including patient preferences, comorbidities, previous drug use, risk factors not captured in the FRAX model (e.g., frailty, falls, vitamin D deficiency, increased bone turnover, interval significant decline in bone density ) and possible under- or over-estimation of fracture risk by FRAX. In addition, the NOF Guide recommends that FDA-approved medical therapies be considered in postmenopausal women and men age >= 50 years with a: * Hip or vertebral (clinical or morphometric) fracture * T-score of <=-2.5 at the spine or hip * Ten-year fracture probability by FRAX of >= 3% for hip fracture or >=20% for major osteoporotic fracture. People with diagnosed cases of osteoporosis or at high risk for fracture should have regular bone mineral density tests. For patients eligible for Medicare, routine testing is allowed once every 2 years. The testing frequency can be increased to one year for patients who have rapidly progressing disease, those who are receiving or discontinuing medical therapy to restore bone mass, or have additional risk factors. Dictated by: Keith Beal M.D. on 08/07/2023 at 21:31 Approved by: Keith Beal M.D. on 08/07/2023 at 21:33
== END ==
PROVIDERS: PCP Family Medicine; Referring Provider Family Medicine; Visit Provider Family Medicine
DX: M85.88 Other specified disorders of bone density and structure, other site (principal); Z78.0 Asymptomatic menopausal state
CPT/HCPCS: 77080

== ENCOUNTER 2023-11-08 09:34 | Observation (INO) | payer OTHER, SELFPAY ==
[2023-11-08] VITALS (7 sets, daily range): BP systolic 105–154; BP diastolic 67–89; PULSE 62–85; RESP 10–16; TEMP 36.1–36.2; O2SAT 96–100; BMI 29.0
--- NOTE | 2023-11-08 09:46 | DI.RAD.S_ITS ---
PROCEDURE: XR CHEST 1V INDICATIONS: chest pain TECHNIQUE: One view of the chest was acquired. COMPARISON: [facility], CR, XR CHEST 2V, 08/03/2017, 8:14. FINDINGS: Surgical changes and devices: None. Lungs and pleura: Lungs are clear. No pleural effusions or pneumothorax. Mediastinum: Mediastinal contours appear normal. Heart size is normal. Bones and chest wall: No suspicious bony lesions. Overlying soft tissues appear unremarkable. IMPRESSION: No acute cardiopulmonary abnormality is seen. Dictated by: Delgado South M.D. on 11/08/2023 at 10:32 Approved by: Delgado South M.D. on 11/08/2023 at 10:34
--- NOTE | 2023-11-08 09:50 | EKG_ITS ---
[address] [address] Test Date: 2023-11-08 Pat Name: Mackenzie Gr Department: Room: Gender: Female Electronic Health Records Specialist: MARLENA : 1965 Requested By: Order Number: [id number] Reading MD: Oskar Clifton Measurements Intervals [place] Rate: 70 P: 30 RI: 170 QRS: -5 QRSD: 82 T: 40 QT: 382 QTc: 412 Interpretive Statements Normal sinus rhythm Electronically Signed On 11-08-2023 20:14:16 PDT by Oskar Clifton
[2023-11-08 09:53] LABS: Add Manual Diff / Slide Review NO; Basophils Absolute Auto 100 /uL (0-100); Basophils Percent Auto 1.3 % (0-2); Eosinophils Absolute Auto 100 /uL (0-450); Eosinophils Percent Auto 2.4 % (2-4); Hemoglobin 12.8 g/dL (12.0-16.0); Lymphocytes Absolute Auto 1700 /uL (1100-4500); Lymphocytes Percent Auto 33.7 % (25-40); Mean Corpuscular HGB Conc 33.6 % (30-36); Mean Corpuscular Hemoglobin 31.2 PG (26-34); Mean Corpuscular Volume 92.8 fL (80-100); Monocytes Absolute Auto 400 /uL (0-900); Monocytes Percent Auto 7.8 % (3-14); Neutrophils Absolute Auto 2800 /uL (1500-7000); Neutrophils Percent Auto 54.8 % (50-75); Platelet Count 302 X10^3/uL (150-400); Red Blood Cell Count 4.09 X10^6/uL (4.0-5.2); Red Cell Distribution Width 13.5 % (11.6-14.8); White Blood Cell Count 5.2 X10^3/uL (4.5-11.0)
[2023-11-08] MEDS: ASPIRIN 81 MG CHEW TAB 324 MG PO (09:58)
[2023-11-08 09:59] LABS: INR 0.9 (0.9-1.3); Prothrombin Time 10.7 SECONDS (9.4-12.5)
[2023-11-08 10:02] LABS: PTT Partial Thromboplastin Tim 39 SECONDS (25.1-36.5)
[2023-11-08 10:04] LABS: Alanine Aminotransferase 23 IU/L (<35); Albumin 4.2 g/dL (3.5-5.0); Albumin Globulin Ratio 1.3 (1.0-2.8); Alkaline Phosphatase 81 U/L (38-126); Aspartate Aminotransferase 32 IU/L (14-36); BUN Creatinine Ratio 15.3 (6-22); Bilirubin Total 0.5 mg/dL (0.2-1.3); Blood Urea Nitrogen 11 mg/dL (7-17); Carbon Dioxide 26 mmol/L (22-32); Chloride 106 mmol/L (98-107); Creatine Kinase 147 U/L (30-135); Estimated Glomerular Filt Rate > 60 mL/min (>60); Globulin 3.3 g/dL (1.7-4.1); Glucose 108 mg/dL (80-110); HEMOLYSIS < 15 (0-50); Lipase 109 U/L (23-300); Magnesium 2.2 mg/dL (1.6-2.3); Potassium 3.8 mmol/L (3.4-5.1); Sodium 139 mmol/L (137-145); Total Protein 7.5 g/dL (6.3-8.2)
--- NOTE | 2023-11-08 10:14 | ED.CHESTPAIN ---
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 However this morning she awoke with left chest discomfort radiating to her left jaw. Nonreproducible. Has dizziness but no nausea or diaphoresis. Father had fatal IL when he was 50 years old. Patient has never had cardiac workup in the past. She does not smoke. No blood pressure medication but does take cholesterol medication. Patient sees primary care doctor Cherrie. Complains of mild discomfort at this time. Patient in no distress. No recent illness. No prior history of DVT or PE Related Data Home Medications Medication Instructions Recorded Confirmed estradiol 0.75 mg/0.75 gram (0.1%) 1 packet transdermal DAILY 11/08/23 11/08/23 transdermal gel packet progesterone micronized 100 mg 100 mg PO ONCE PM 11/08/23 11/08/23 capsule testosterone 1 % (25 mg/2.5 gram) 1 packet topical DAILY 11/08/23 11/08/23 transdermal gel packet Previous Rx's Medication Instructions Recorded levothyroxine 50 mcg tablet 50 mcg PO DAILY #90 tabs 04/18/23 atorvastatin 20 mg tablet See Rx Instructions .Route 05/20/23 .COMPLEX #90 tabs fluoxetine 10 mg capsule 10 mg PO DAILY #90 caps 06/17/23 alprazolam 0.25 mg tablet 0.25 mg PO TID PRN anxiety #10 tabs 07/19/23 Allergies Allergy/AdvReac Type Severity Reaction Status Date / Time No Known Drug Allergies Allergy Verified 11/08/23 09:51 Review of Systems Review of Systems Narrative: GENERAL: negative chills, fatigue, malaise, fever, sweats. HEENT: negative sinus pain, ear pain, sore throat RESPIRATORY: negative dyspnea, cough CARDIOVASCULAR: Positive chest pain, palpitations GASTROINTESTINAL: negative nausea, vomiting, abdominal pain : negative dysuria, frequency, hematuria MUSCULOSKELETAL: negative muscle or bony pain SKIN: negative rash, skin lesions NEUROLOGIC: negative weakness, numbness positive dizziness Patient History Medical History Fatty liver Skin cancer (~2001) Abnormal chest xray (~2017) Restless leg syndrome (~1989) Shoulder pain (~2017) Chicken pox (~1968) Painful menstrual periods (~1979) Abnormal Pap smear of cervix (~2003) Family hx of colon cancer Hypothyroidism (~1993) Surgical History Anesthesia Throat papilloma (~2004) [place] teeth removed (~1982) Branchial cleft cyst (~1975) History of section (~2001) History of section (~2000) Family History Father Alcoholism Smoker Mother Hyperlipidemia Hypertension Sister Rectal cancer Grandfather Hyperlipidemia Hypertension Heart disease Grandmother Diabetes mellitus Hypertension Stroke Grandfather Hyperlipidemia Hypertension Grandmother Hypertension Diabetes mellitus Social History marital status: household members: family lives independently: Yes caregiver/support person: No housing: house education level: college occupational status: employed Smoking Status: Never smoker second hand exposure: No alcohol intake: current substance use type: does not use Smoking Status: Never smoker alcohol intake frequency: a few times a month Alcohol type: wine Substance Use Type: does not use Exam Narrative Exam Narrative: GENERAL: in no distress, not toxic not dyspneic HEAD: Normocephalic. EYES: Pupils equal round ENT: Mucous membranes moist. NECK: Trachea midline. CARDIOVASCULAR: Regular rate and rhythm RESPIRATORY: Clear to auscultation. Breath sounds equal bilaterally. No wheezes, rales, or rhonchi. GASTROINTESTINAL: Abdomen soft, non-tender EXTREMITIES: No gross deformities. BACK: No flank tenderness. NEURO: AOx4. SKIN: Warm and dry PSYCH: Not anxious, is cooperative Initial Vital Signs Initial Vital Signs: Vital Signs Temperature 97.0 F L 11/08/23 09:35 Pulse Rate 78 11/08/23 09:35 Respiratory Rate 14 11/08/23 09:35 Blood Pressure 148/81 H 11/08/23 09:35 Pulse Oximetry 96 11/08/23 09:35 Oxygen Delivery Method Room Air 11/08/23 09:35 Course Orders Ordered: Discontinued Medications Acetaminophen (Acetaminophen 325 Mg Tablet) 650 mg PO Q6H PRN PRN Reason: Fever/Mild Pain (1-3) Last Admin: 11/08/23 16:39 Dose: 650 mg Documented By: JODIE Alprazolam (Alprazolam 0.25 Mg Tablet) 0.25 mg PO TID PRN PRN Reason: anxiety Aspirin (Aspirin 81 Mg Chew Tab) 324 mg PO NOW ONE Stop: 11/08/23 09:47 Last Admin: 11/08/23 09:58 Dose: 324 mg Documented By: MAGUE Atorvastatin Calcium (Atorvastatin 20 Mg Tablet) 20 mg PO BEDTIME [facility] Enoxaparin Sodium (Enoxaparin 40 Mg/0.4 Ml Syringe) 40 mg SUBCUT DAILY [facility] Fluoxetine HCl (Fluoxetine 10 Mg Capsule) 10 mg PO DAILY [facility] Ibuprofen (Ibuprofen 400 Mg Tablet) 400 mg PO Q4H PRN PRN Reason: Pain, Mild (1-3) Last Admin: 11/08/23 16:38 Dose: 400 mg Documented By: JODIE Levothyroxine Sodium (Levothyroxine 50 Mcg Tablet) 50 mcg PO DAILY@0600 [facility] Naloxone HCl (Naloxone 0.4 Mg/Ml Vial) 0.2 mg IV Q2MIN PRN PRN Reason: Opiate Reversal Nitroglycerin (Nitroglycerin Oint 1 Inch/Gm Oint...G.) 0.5 inch TOP NOW ONE Stop: 11/08/23 10:15 Last Admin: 11/08/23 10:33 Dose: 0.5 inch Documented By: MAGUE Estradiol 0.75 Mg/0. 75 Gram (0.1%) Gel In Packet 1 packet TOP DAILY [facility] Testosterone 1 % (25 Mg/2.5gram) Gel In Packet 1 packet TOP DAILY [facility] Progesterone (Progesterone, Micronized 100 Mg Capsule) 100 mg PO BEDTIME [facility] Vital Signs Vital signs: Vital Signs - 8 hr 11/08/23 09:35 11/08/23 09:39 11/08/23 09:39 Temperature 97.0 F L Pulse Rate 78 76 Respiratory Rate 14 Blood Pressure 148/81 H 148/81 H Pulse Oximetry 96 96 Oxygen Delivery Method Room Air 11/08/23 10:00 11/08/23 10:00 11/08/23 10:30 Temperature Pulse Rate 69 Respiratory Rate 10 L Blood Pressure 147/83 H 138/86 Pulse Oximetry 97 Oxygen Delivery Method 11/08/23 10:30 11/08/23 10:33 Temperature Pulse Rate 68 69 Respiratory Rate 14 Blood Pressure 148/89 H Pulse Oximetry 96 Oxygen Delivery Method [facility] - Chest Pain Lab Data 11/08/23 09:45 11/08/23 09:45 Labs: Lab Results 11/08/23 Range/Units 09:45 WBC 5.2 (4.5-11.0) X10^3/uL RBC 4.09 (4.0-5.2) X10^6/uL Hgb 12.8 (12.0-16.0) g/dL Hct 38.0 (36-46) % MCV 92.8 (80-100) fL MCH 31.2 (26-34) PG MCHC 33.6 (30-36) % RDW 13.5 (11.6-14.8) % Plt Count 302 (150-400) X10^3/uL Neut % (Auto) 54.8 (50-75) % Lymph % (Auto) 33.7 (25-40) % Major % (Auto) 7.8 (3-14) % Eos % (Auto) 2.4 (2-4) % Baso % (Auto) 1.3 (0-2) % Neut # (Auto) 2800 (9870-1388) /uL Lymph # (Auto) 1700 (1065-8182) /uL Major # (Auto) 400 (0-900) /uL Eos # (Auto) 100 (0-450) /uL Baso # (Auto) 100 (0-100) /uL PT 10.7 (9.4-12.5) SECONDS INR 0.9 (0.9-1.3) APTT 39 H (25.1-36.5) SECONDS D-Dimer 280 (<500) ng/ml Sodium 139 (137-145) mmol/L Potassium 3.8 (3.4-5.1) mmol/L Chloride 106 (98-107) mmol/L Carbon Dioxide 26 (22-32) mmol/L BUN 11 (7-17) mg/dL Creatinine 0.72 (0.52-1.04) mg/dL Estimated GFR > 60 (>60) mL/min BUN/Creatinine Ratio 15.3 (6-22) Glucose 108 (80-110) mg/dL Calcium 9.0 (8.4-10.2) mg/dL Magnesium 2.2 (1.6-2.3) mg/dL Total Bilirubin 0.5 (0.2-1.3) mg/dL AST 32 (14-36) IU/L ALT 23 (<35) IU/L Alkaline Phosphatase 81 (38-126) U/L Total Creatine Kinase 147 H (30-135) U/L Troponin I < 0.012 (0.01-0.034) ng/mL NT-Pro-B Natriuret Pep 84 (<125) pg/mL Total Protein 7.5 (6.3-8.2) g/dL Albumin 4.2 (3.5-5.0) g/dL Globulin 3.3 (1.7-4.1) g/dL Albumin/Globulin Ratio 1.3 (1.0-2.8) Lipase 109 (23-300) U/L Imaging Data Chest x-ray: Radiologist's Impression: [address] [address] XRay Report Signed Patient: Mackenzie Gr MR#: [id number] : 1965 Acct:[id number] Age/Sex: 58 / F Date of Service: 11/08/23 Loc: ED Accession Number: [id number] Procedure: XR chest 1V Ordering Provider: Elmer Up MD PROCEDURE: XR CHEST 1V INDICATIONS: chest pain TECHNIQUE: One view of the chest was acquired. COMPARISON: [facility] , XR CHEST 2V, 08/03/2017, 8:14. FINDINGS: Surgical changes and devices: None. Lungs and pleura: Lungs are clear. No pleural effusions or pneumothorax. Mediastinum: Mediastinal contours appear normal. Heart size is normal. Bones and chest wall: No suspicious bony lesions. Overlying soft tissues appear unremarkable. IMPRESSION: No acute cardiopulmonary abnormality is seen. Dictated by: Delgado South M.D. on 11/08/2023 at 10:32 Approved by: Delgado South M.D. 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 However this morning she awoke with left chest discomfort radiating to her left jaw. Nonreproducible. Has dizziness but no nausea or diaphoresis. Father had fatal IL when he was 50 years old. Patient has never had cardiac workup in the past. She does not smoke. No blood pressure medication but does take cholesterol medication. Patient sees primary care doctor Cherrie. Complains of mild discomfort at this time. Patient in no distress. No recent illness. No prior history of DVT or PE After history and exam CBC CMP troponin D-dimer aspirin nitro paste chest x-ray EKG [facility] Medical records reviewed: No recent visit for this complaint Differential considered: Includes but not limited to STEMI non-STEMI acute coronary syndrome atypical chest pain Lab Test results independently reviewed as above. Pertinent findings: WBC 5.2 hemoglobin 12.8 sodium 139 potassium 3.8, troponin less than 0.012, D-dimer 208 Independently reviewed EKG normal EKG normal sinus rhythm rate [address] elevation or depression Imaging studies independently reviewed: Chest x-ray no acute finding Consultations: 10:40 a.m.. Spoke with primary care doctor Cherrie, she will admit pt Treatments: Aspirin nitro paste Re-evaluations: 10:45 a.m.. Updated patient, laboratory studies are reassuring. She does agree for admission. Discussion: Appropriate for admission for observation, echocardiogram ordered. Strong family history of coronary disease Diagnosis: Chest pain Discharge Plan Departure Patient Disposition: Admitted as Observation Clinical Impression: Chest pain Qualifiers: Chest pain type: unspecified Qualified Code(s): R07.9 - Chest pain, unspecified Admit Date/Time: 11/08/23 10:36 Admit Provider: Kristin Grier
[2023-11-08 10:15] LABS: NT-proBNP (BNP-Adult 18+) 84 pg/mL (<125); Troponin I < 0.012 ng/mL (0.01-0.034)
--- NOTE | 2023-11-08 10:19 | DI.ECHO.S_ITS ---
[place] [facility] : : [address] : : [place] : : [id number] : : Phone: [phone] Echocardiogram Report + + :Name: BARBARA ARZATE Study Date: 11/08/2023 Height: 66 in : :[facility] ReadingLocation: Weight: 180 lb : : Gender: Female BSA: 1.9 m2 : :: 1965 Age: 58 yrs BP: 148/89 mmHg: :Reason For Study: CHEST PRESSURE : :Ordering Physician: GEREMIAS, : :RAYSHAWN Performed By: Missy Logan : :Referring: RAYSHAWN ARCHULETA : + + Interpretation Summary 1. The left ventricular contractility is normal. Estimated ejection fraction is greater than 60% with no segmental wall motion abnormalities. No LVH. Normal diastolic function. 2. The right ventricle contractility is normal. 3. All cardiac chambers are of normal size. 4. No significant valvular abnormalities. 5. No obvious intracardiac shunts. 6. No obvious intracardiac masses nor thrombi. 7. No hemodynamically significant pericardial effusion. 8. Low right-sided filling pressures. Conclusion: Normal biventricular function with no significant structural nor valvular abnormalities. Procedure: A two-dimensional transthoracic echocardiogram with color flow and Doppler was performed. The study quality was technically adequate. There is no prior echocardiogram noted for this patient. The patient was in sinus rhythm with heart rates between 60-66 bpm during the exam. Left Ventricle: The left ventricle is normal in size and wall thickness. The ejection fraction is estimated to be 60-65%. Right Ventricle: The right ventricle is normal in size and function. Atria: The left atrial size is normal. Right atrial size is normal. There is no Doppler evidence for an interatrial shunt. Mitral Valve: The mitral valve is normal in structure and function. There is trace mitral regurgitation. Aortic Valve: The aortic valve is trileaflet. The aortic valve opens well. There is no aortic valve stenosis. No aortic regurgitation is present. Tricuspid Valve: The tricuspid valve is normal in structure and function. There is trace tricuspid regurgitation. Pulmonary artery pressures cannot be estimated because of the lack of a measurable TR jet velocity. Pulmonic Valve: The pulmonic valve leaflets are thin and pliable; valve motion is normal. There is no pulmonic valvular regurgitation. Great Vessels: The aortic root is normal size. The dimensions of the ascending aorta are normal. The IVC is of normal diameter and collapses greater than 50% with a sniff. This suggests a low right atrial pressure of 3 mm Hg. Pericardium/ Pleura There is no pericardial effusion. There is no pleural effusion. MMode/2D Measurements & Calculations LVIDd: 4.4 cm LVOT diam: 2.0 cm LVIDs: 2.9 cm Ao root diam: 3.0 cm FS: 32.9 % asc Aorta Diam: 3.2 cm EPSS: 0.82 cm Ao Arch Diam (Prox Trans): 2.7 cm IVSd: 1.0 cm LVPWd: 0.75 cm LV call. diameter/BSA (cm/m^2): 2.3 LV sys. diameter/BSA (cm/m^2): 1.5 LA A2 area: 16.6 cm2 RA long axis: 5.0 cm LA A4 area: 11.9 cm2 RA area: 13.6 cm2 LA length (vol): 4.3 cm RA vol: 31.1 ml LA vol: 38.7 ml RA : 16.3 ml/m2 LA vol index: 20.2 ml/m2 IVC diam: 1.9 cm RVD1 (basal): 3.7 cm RVD2 (mid): 3.2 cm TAPSE: 2.3 cm Doppler Measurements & Calculations Ao V2 max: 119.7 cm/sec LVOT Max Wander: 93.4 cm/sec Ao V2 mean: 79.9 cm/sec LV V1 max P.5 mmHg Ao max P.7 mmHg LV V1 VTI: 20.4 cm Ao mean P.9 mmHg MARIA A(I,D): 2.5 cm2 Ao V2 VTI: 25.3 cm MARIA A(V,D): 2.4 cm2 sev ratio: 0.81 MARIA A indexed to BSA (cm^2/m^2): 1.3 MV E max wander: 73.8 cm/sec PA V2 max: 87.5 cm/sec MV A max wander: 79.7 cm/sec PA V2 mean: 67.0 cm/sec MV E/A: 0.93 PA mean P.9 mmHg Med Peak E' Wander: 8.5 cm/sec PA pr(Accel): 37.9 mmHg E/E' med: 8.7 Lat Peak E' Wander: 12.4 cm/sec E/E' lat: 5.9 E/e' average: 7.3 MV dec time: 0.24 sec SV(LVOT): 64.0 ml Reading Physician:
[2023-11-08 10:24] LABS: D Dimer 280 ng/ml (<500)
[2023-11-08] MEDS: NITROGLYCERIN OINT 1 INCH/GM OINT...G. 0.5 INCH TOP (10:33)
--- NOTE | 2023-11-08 12:02 | PC.NURSE ---
Addendum entered by Maddie Bradshaw R.N. 11/08/23 14:27: Around 1400, patient asked for pain medications. This RN explained to patient that she has been sleeping and groggy all day and she states I dont know why i am so tired, turns out that patient had her sleeping medications in the middle of the night. This is why she has been so groggy today. She is eating at meals and then falls right back to sleep. Original Note: Patient denies chest pain at this time, she is NSR on tele. Janna is having her Echo done now. She has been admitted to the floor and is resting now.
--- NOTE | 2023-11-08 13:09 | P.HP_ITS ---
History of Present Illness History of Present Illness Date Patient Seen: 11/08/23 Chief complaint: chest pressure, dizziness Narrative: Pt is a 58yo woman with hypothyroidism, hyperlipidemia, fatty liver disease who presented with chest pain/palpitations. The pt reports that for the past couple weeks she has woken some mornings but not others with a strange sensation in her chest and palpitations. This usually self resolves after a few minutes. She has done EKGs on her Apple watch when it occurs, and her HR at the highest was 107 and always in normal rhythm. This morning, the pt woke with the same sensation however a pressure feeling radiated into her neck as well. She denies any associated nausea, SOB, diaphoresis. She continues to exercise regularly and denies any issues when exercising. Her father did from an [place] in his 50s. In the ED, the pt had negative cardiac work-up including labs, EKG, and CXR. She was admitted for serial troponins and ongoing monitoring. [facility] Medical History Fatty liver Skin cancer (~2001) Abnormal chest xray (~2017) Restless leg syndrome (~1989) Shoulder pain (~2017) Chicken pox (~1968) Painful menstrual periods (~1979) Abnormal Pap smear of cervix (~2003) Family hx of colon cancer Hypothyroidism (~1993) Surgical History Anesthesia Throat papilloma (~2004) [place] teeth removed (~1982) Branchial cleft cyst (~1975) History of section (~2001) History of section (~2000) Family History Father Alcoholism Smoker Mother Hyperlipidemia Hypertension Sister Rectal cancer Grandfather Hyperlipidemia Hypertension Heart disease Grandmother Diabetes mellitus Hypertension Stroke Grandfather Hyperlipidemia Hypertension Grandmother Hypertension Diabetes mellitus Social History marital status: household members: family lives independently: Yes caregiver/support person: No housing: house education level: college occupational status: employed Smoking Status: Never smoker second hand exposure: No alcohol intake: current substance use type: does not use Meds Home Medications and Allergies Home Medications Medication Instructions Recorded Confirmed Type levothyroxine 50 mcg tablet 50 mcg PO DAILY #90 tabs 04/18/23 11/08/23 Rx atorvastatin 20 mg tablet See Rx Instructions .Route 05/20/23 11/08/23 Rx .COMPLEX #90 tabs fluoxetine 10 mg capsule 10 mg PO DAILY #90 caps 06/17/23 11/08/23 Rx alprazolam 0.25 mg tablet 0.25 mg PO TID PRN anxiety #10 tabs 07/19/23 11/08/23 Rx estradiol 0.75 mg/0.75 gram (0.1%) 1 packet transdermal DAILY 11/08/23 11/08/23 History transdermal gel packet progesterone micronized 100 mg 100 mg PO ONCE PM 11/08/23 11/08/23 History capsule testosterone 1 % (25 mg/2.5 gram) 1 packet topical DAILY 11/08/23 11/08/23 History transdermal gel packet Allergies Allergy/AdvReac Type Severity Reaction Status Date / Time No Known Drug Allergies Allergy Verified 11/08/23 09:51 Exam Vital Signs (past 8 hours): - 11/08/23 09:35 11/08/23 09:39 11/08/23 09:39 Temperature 97.0 F L Pulse Rate 78 76 Respiratory Rate 14 Blood Pressure 148/81 H 148/81 H Pulse Oximetry 96 96 Oxygen Delivery Method Room Air Oxygen Flow Rate 11/08/23 10:00 11/08/23 10:00 11/08/23 10:30 Temperature Pulse Rate 69 Respiratory Rate 10 L Blood Pressure 147/83 H 138/86 Pulse Oximetry 97 Oxygen Delivery Method Oxygen Flow Rate 11/08/23 10:30 11/08/23 10:33 11/08/23 11:00 Temperature 97.0 F L Pulse Rate 68 69 62 Respiratory Rate 14 16 Blood Pressure 148/89 H 154/89 H Pulse Oximetry 96 97 Oxygen Delivery Method Oxygen Flow Rate 0 Oxygen Delivery Method Room Air Oxygen Flow Rate 0 Narrative Exam Narrative: Gen: NAD, sitting comfortably in bed, appears well HEENT: no JVD CV: RRR, no murmurs Resp: clear to auscultation bilaterally Abd: soft, nontender, nondistended Ext: no edema Neuro: no gross deficits Objective Labs 11/08/23 09:45 11/08/23 09:45 Labs: Laboratory Results - last 24 hr 11/08/23 09:45 WBC 5.2 RBC 4.09 Hgb 12.8 Hct 38.0 MCV 92.8 MCH 31.2 MCHC 33.6 RDW 13.5 Plt Count 302 Neut % (Auto) 54.8 Lymph % (Auto) 33.7 [place] % (Auto) 7.8 Eos % (Auto) 2.4 Baso % (Auto) 1.3 Neut # (Auto) 2800 Lymph # (Auto) 1700 [place] # (Auto) 400 Eos # (Auto) 100 Baso # (Auto) 100 PT 10.7 INR 0.9 APTT 39 H D-Dimer 280 Sodium 139 Potassium 3.8 Chloride 106 Carbon Dioxide 26 BUN 11 Creatinine 0.72 Estimated GFR > 60 BUN/Creatinine Ratio 15.3 Glucose 108 Calcium 9.0 Magnesium 2.2 Total Bilirubin 0.5 AST 32 ALT 23 Alkaline Phosphatase 81 Total Creatine Kinase 147 H Troponin I < 0.012 NT-Pro-B Natriuret Pep 84 Total Protein 7.5 Albumin 4.2 Globulin 3.3 Albumin/Globulin Ratio 1.3 Lipase 109 Assessment & Plan Assessment & Plan narrative: Pt is a 58yo woman with hypothyroidism, hyperlipidemia, fatty liver disease who presented with chest pain/palpitations. Pt with atypical symptoms, with sensation only at rest in the morning, not induced by exercise. Pt does not feel like it is GERD, and has taken Pantoprazole without benefit. Does have hx of anxiety, but does not feel this is a cause as no new stressors in life. Cardiac work-up negative here with reassuring Echo, negative cardiac enzymes x2, normal EKG and CXR. Pt sinus rhythm while in the hospital. Will complete outpatient Zio patch for 2 weeks. Stress testing not available for the weekend, and after discussion of risks vs benefits pt is agreeable to obtaining on an outpatient basis. She will continue her usual home medications in the meantime. Time-Based Coding :: [TOTAL MINUTES] spent with patient and on the chart (including review of chart, obtaining history, exam, reviewing outside data, placing orders, documenting exam and treatment plan, and counseling patient) on [DATE]. Quality VTE Deep Vein Thrombosis/Pulmonary Embolism Present on Admission: No PROFEE Charge Codes Inpatient/observation care including admit and discharge same day: [id number]
[2023-11-08 14:45] LABS: Troponin I < 0.012 ng/mL (0.01-0.034)
--- NOTE | 2023-11-08 15:47 | PC.NURSE ---
Patient denies chest pain, she has been resting in bed. Echo done, she is tolerating a heart healthy diet, and has denied chest pain since coming up to the floor. Resting comfortably.
[2023-11-08] MEDS: IBUPROFEN 400 MG TABLET PO (16:38)
[2023-11-08] MEDS: ACETAMINOPHEN 325 MG TABLET 650 MG PO (16:39)
== END 2023-11-08 17:55 | disposition home or self-care (01) ==
LOC: ED 10:00 → AC 10:37
PROVIDERS: Admitting Provider Family Medicine; Emergency Provider Emergency Medicine; PCP Family Medicine; Referring Provider Emergency Medicine; Visit Provider Family Medicine
DX: R07.9 Chest pain, unspecified (principal); R00.2 Palpitations; E03.9 Hypothyroidism, unspecified; E78.5 Hyperlipidemia, unspecified; K76.0 Fatty (change of) liver, not elsewhere classified
CPT/HCPCS: 36415; 71045; 80053; 82550; 83690; 83735; 83880; 84484; 85025; 85379; 85610; 85730; 93005; 93306; 99235; 99284; G0378

== ENCOUNTER → 2023-11-25 07:28 | Outpatient (CLI) | payer OTHER, SELFPAY ==
[2023-11-08 11:13] VITALS: BMI 29.0
== END ==
LOC: CAR 07:29
PROVIDERS: PCP Family Medicine; Referring Provider Family Medicine; Visit Provider Family Medicine
DX: R00.2 Palpitations (principal)
CPT/HCPCS: 93246

== ENCOUNTER → 2023-12-25 14:11 | Outpatient (CLI) | payer OTHER, SELFPAY ==
[2023-11-08 11:13] VITALS: BMI 29.0
--- NOTE | 2023-12-25 14:12 | DI.US.S_ITS ---
PROCEDURE: US PELVIC COMPLETE INDICATIONS: POSTMENOPAUSAL BLEEDING TECHNIQUE: Real-time scanning was performed of the pelvic organs, with image documentation. Additional endovaginal scanning was necessary due to incomplete visualization of the adnexal and endometrial structures by transabdominal scanning. COMPARISON: [facility], US, US PELVIC COMPLETE, 05/16/2021, 13:18. FINDINGS: Uterus: Uterus is anteverted and normal in size at 7.2 x 3.8 x 3.4 cm. The myometrium is heterogeneous. The endometrium measures 6.5 mm combined thickness. Endometrium is ill-defined and thickened. Ovaries: Ovaries are not well seen. Other: No pathologic free abdominal or pelvic fluid. IMPRESSION: Endometrium is ill-defined and thickened measuring 6.5 mm. Recommend further evaluation with endometrial sampling or short-term follow-up ultrasound. The ovaries are not seen. We strive to produce accurate, complete, and clear reports of imaging services. To assist us in improving patient care, this report was composed using standard report templates and voice recognition software. Therefore, it may contain abnormal punctuation, insertions and/or omissions. Occasional wrong-word or sound-alike substitutions may occur. Though we review the report and make efforts to correct it, we do recommend that the report be read carefully in proper context to recognize any text inaccuracies. Dictated by: Mario Victor M.D. on 12/25/2023 at 17:59 Approved by: Mario Victor M.D. on 12/25/2023 at 18:00
== END ==
LOC: US 14:12
PROVIDERS: PCP Family Medicine; Referring Provider Family Medicine; Visit Provider Family Medicine
DX: N95.0 Postmenopausal bleeding (principal); R93.89 Abnormal findings on diagnostic imaging of other specified body structures
CPT/HCPCS: 76830; 76856

== ENCOUNTER → 2024-01-06 14:26 | Outpatient (CLI) | payer OTHER, SELFPAY ==
[2023-11-08 11:13] VITALS: BMI 29.0
--- NOTE | 2024-01-06 14:27 | DI.MG.S_ITS ---
BILATERAL DIGITAL SCREENING MAMMOGRAM 3D/2D WITH CAD: 01/06/2024 CLINICAL: Routine screening. Family history of breast cancer. Comparison is made to exams dated: 12/31/2022 mammogram - [facility], 12/28/2021 mammogram - [facility], and 12/15/2020 mammogram - [facility]. There are scattered areas of fibroglandular density (category b / 25%-50% glandular tissue). Current study was also evaluated with a Computer Aided Detection (CAD) system. No significant masses, calcifications, or other findings are seen in either breast. There has been no significant interval change. IMPRESSION: NEGATIVE There is no mammographic evidence of malignancy. A 1 year screening mammogram is recommended. Based on the Tyrer Cuzick model (a risk assessment model) the patient's lifetime risk is 13.7% and her 10 year risk is 5.6%. According to the ACR, ACS, and NCCN guidelines, an annual breast MRI exam along with mammogram is recommended if the patient's lifetime risk is 20% or greater. This exam was interpreted at Station ID: [id number]. NOTE: For mammograms, a report in lay terms will be sent to the patient. Approximately 15% of breast malignancies will not be visualized mammographically. In the management of a palpable breast mass, a negative mammogram must not discourage biopsy of a clinically suspicious lesion. Electronically Signed By: Yohan hoffman/hilda:01/06/2024 15:18:12 letter sent: Normal Exam ACR BI-RADS Category 1: Negative
== END ==
PROVIDERS: PCP Family Medicine; Referring Provider Family Medicine; Visit Provider Family Medicine
DX: Z12.31 Encounter for screening mammogram for malignant neoplasm of breast (principal); Z80.3 Family history of malignant neoplasm of breast
CPT/HCPCS: 77063; 77067

== ENCOUNTER 2024-01-27 06:23 | Day surgery (SDC) | payer OTHER, SELFPAY ==
[2023-11-08 11:13] VITALS: BMI 29.0
[2024-01-22 12:30] VITALS: BMI 29.8
[2024-01-27] VITALS (7 sets, daily range): BP systolic 126–142; BP diastolic 74–88; PULSE 70–82; RESP 16; TEMP 36.2–36.9; O2SAT 95–98; BMI 27.3
--- NOTE | 2024-01-27 | PATH_ITS ---
[facility] Accession Number: [id number] No. of containers..01 Tissue . 01 Material submitted: . endometrium - ENDOMETRIAL CURRETTINGS . 01 Diagnosis: ENDOMETRIAL CURETTINGS: Tangentially oriented fragments of squamous mucosa; no definite dysplasia identified; tangential orientation obscures. Small fragments of endometrial tissue and strips of endometrial glandular epithelium; negative for endometrioid intraepithelial neoplasia or malignancy. Suboptimal for evaluation of endometrial glandular hyperplasia or neoplasia due to scant endometrial stromal component. MRV 01/30/2024 1316 Local . 01 Electronically signed: . Shireen Noble MD, Pathologist NPI- [id number] . 01 Gross description: . Received in formalin with two patient identifiers and EMC, are multiple orozco soft tissue fragments admixed with mucohemorrhagic materail received on Telfa aggregating to 1.8 x 1.0 x 0.2 cm. Filtered and submitted in cassette A1. ([id number]) /MARY 01/29/2024 1100 Local . 01 Pathologist provided ICD-10: N95.0 . 01 CPT . 047365 Specimen Comment: A courtesy copy of this report has been sent to [facility] Pathology Performed at: [address] [facility] [address], [place], [place] [id number] MD bA Ríos MD Phone: [phone]
[2024-01-27] MEDS: ACETAMINOPHEN IV 1,000 MG/100 ML VIAL 400 MG IV (06:45)
[2024-01-27] MEDS: SCOPOLAMINE 1 PATCH TOP (07:10)
[2024-01-27] MEDS: LACTATED RINGERS 1,000 ML 42 ML IV (07:10)
--- NOTE | 2024-01-27 07:26 | PM.PREOP ---
Pre-operative Note Interval Note History & Physical reviewed/Exam performed by Physician: Yes Changes to H&P: No H&P completed within 30 days and has changed as indicated here:: 01/15/24 ASA Class (for procedural sedation): I
--- NOTE | 2024-01-27 07:53 | SUR.OPER ---
Lithotomy on padded OR bed, head on pillow, arms secured on padded arm boards at <90 degrees abduction. Legs secured in padded yellow fins stirrups.
[2024-01-27] MEDS: ONDANSETRON 4 MG/2 ML INJ IV (08:24)
[2024-01-27] MEDS: HYDROMORPHONE 1 MG INJ IV ×2 (08:24→08:38)
[2024-01-27] MEDS: OXYCODONE IR 5 MG TABLET PO ×2 (08:25→08:52)
--- NOTE | 2024-01-27 08:42 | PM.OP.1 ---
Operative Date/Time/Diagnoses Date of procedure: 01/27/24 Time of procedure: 07:45 Pre-op diagnosis: PMB Post-op diagnosis: same Procedure & Clinicians Procedure: hysteroscopy, dilation and curettage Same procedure as scheduled: Yes Indications: postmenopausal bleeding Surgeon: Marlys Guerrero Click Yes if Unassisted: Yes Anesthesia Type: General Operative Notes Findings: normal external female genitalia, atrophic stenotic cervix without abnormality intrauterine cavity grossly wnl, scant endometrium bilateral ostia visualized Closure Type: not applicable Specimen(s): other (endometrial currettings ) Estimated Blood Loss (mL): 5 Procedure in detail: Pt was taken to the operating room, transferred to OR table and anesthesia was induced with placement of LMA.? Pt had her legs placed in Devan stirrups and an exam under anesthesia was performed. The patient was prepped and draped in a sterile fashion.? A time out was performed. ?The bladder was emptied via straight catheter in sterile fashion.? A sterile speculum was inserted into the vagina.? The cervix was visualized and grasped anteriorly using a single tooth tenaculum.? The uterus sounded to 7 cm and the cervical os was serially dilated using Sheppard dilators up to 17f to allow for passage of the hysteroscope.? The 5mm 0 degree hysteroscope was then inserted into the uterus with findings as noted.? The hysteroscope was removed and the uterus was sharply curetted until a gritty texture was noted throughout.? The tenaculum was removed and hemostasis was noted at insertion sites.? The speculum was removed and hemostasis was again noted to be excellent.? The patient then had her legs taken out of stirrups.? The patient tolerated the procedure well and without difficulty.? The patient was awakened from anesthesia and taken to PACU in stable condition. Complications: none Post-operative Condition: stable Disposition: PACU Plan for aftercare: anticipate dc to home, routine postop f/u via telehealth 2 wks
== END 2024-01-27 09:15 | disposition home or self-care (01) ==
PROVIDERS: PCP Family Medicine; Referring Provider Obstetrics & Gynecology; Visit Provider Obstetrics & Gynecology
PROC: 0UDB8ZZ Extraction of Endometrium, Via Natural or Artificial Opening Endoscopic (ICD-10-PCS; CPT 58558; principal; 2024-01-27 07:45)
DX: N95.0 Postmenopausal bleeding (principal)
CPT/HCPCS: 58558; J0134; J1100; J1171; J1885; J2250; J2405; J2704; J3010

== ENCOUNTER → 2024-02-13 13:28 | Outpatient (CLI) | payer OTHER, SELFPAY ==
[2023-11-08 11:13] VITALS: BMI 29.0
== END ==
PROVIDERS: PCP Family Medicine; Referring Provider Internal Medicine; Visit Provider Internal Medicine
DX: Z23 Encounter for immunization (principal)
CPT/HCPCS: 90471; 90656

== ENCOUNTER → 2024-10-07 09:16 | Outpatient (CLI) | payer OTHER, SELFPAY ==
[2023-11-08 11:13] VITALS: BMI 29.0
[2024-10-07 10:26] LABS: Alanine Aminotransferase 22 IU/L (<35); Albumin 4.6 g/dL (3.5-5.0); Albumin Globulin Ratio 1.8 (1.0-2.8); Alkaline Phosphatase 78 U/L (38-126); Blood Urea Nitrogen 14 mg/dL (7-17); Calcium 9.2 mg/dL (8.4-10.2); Carbon Dioxide 25 mmol/L (22-32); Chloride 105 mmol/L (98-107); Cholesterol 171 mg/dL (140-199); Estimated Glomerular Filt Rate > 60 mL/min (>60); Globulin 2.6 g/dL (1.7-4.1); Glucose 88 mg/dL (70-99); HDL Cholesterol 62 mg/dL (40-60); HEMOLYSIS < 15 (0-50); Potassium 4.5 mmol/L (3.4-5.1); Sodium 138 mmol/L (137-145); Total Protein 7.2 g/dL (6.3-8.2); Triglycerides 97 mg/dL (35-150)
[2024-10-07 10:55] LABS: Thyroid Stimulating Hormone 3.39 uIU/mL (0.47-4.68)
[2024-10-07 11:30] LABS: Microalbumi Creatinin Ratio Ur 4.0 ug/mg CR (<30)
== END ==
PROVIDERS: PCP Family Medicine; Referring Provider Family Medicine; Visit Provider Family Medicine
DX: E78.5 Hyperlipidemia, unspecified (principal); R68.82 Decreased libido; E03.9 Hypothyroidism, unspecified
CPT/HCPCS: 36415; 80053; 80061; 82043; 82570; 84402; 84403; 84443